=== PATIENT | female | born 1935 | race Caucasian/White ===

== ENCOUNTER → 2017-12-09 08:57 | Outpatient (CLI) | payer MEDICARE ==
[2015-07-15 09:28] VITALS: BMI 28.0
[~2017-12-09 08:57] MED LIST: ARTHROTEC EC 71 EACH PO; PRILOSEC20 MG PO; SYNTHROID75 MCG PO; TOVIAZ8 MG PO
[2017-12-09 10:06] LABS: CREATININE - SERUM 1.1 mg/dL (0.6-1.3)
== END | disposition home or self-care (01) ==
LOC: D.RT 08:57
PROVIDERS: Internal Medicine Pulmonary Disease
DX: J45.909 Unspecified asthma, uncomplicated (principal)

== ENCOUNTER → 2018-12-15 10:17 | Outpatient (CLI) | payer MEDICARE ==
[2015-07-15 09:28] VITALS: BMI 28.0
== END | disposition home or self-care (01) ==
LOC: D.RAD 10:00
PROVIDERS: ATTEND Internal Medicine Pulmonary Disease
DX: R93.89 Abnormal findings on diagnostic imaging of other specified body structures (principal)

== ENCOUNTER → 2019-08-22 08:40 | Outpatient (CLI) | payer MEDICARE ==
[2015-07-15 09:28] VITALS: BMI 28.0
== END ==
LOC: D.RT 08:40
PROVIDERS: ATTEND Internal Medicine Pulmonary Disease
DX: J45.909 Unspecified asthma, uncomplicated (principal)

== ENCOUNTER 2020-04-08 16:13 | Inpatient (IN) | payer MEDICARE ==
[~2020-04-08] VITALS: Ht 157.5 cm; Wt 53.1 kg
[2020-04-08] MEDS ORDERED: VESICARE10 MG PO (16:21)
[2020-04-08] MEDS ORDERED: SYMBICORT 80-10.2 GM INH (16:21)
[2020-04-08] MEDS ORDERED: VITAMIN B-1250 MCG PO (16:22)
[2020-04-08] MEDS ORDERED: THERMOTABS 1 GM1 GM PO (16:22)
[2020-04-08] MEDS ORDERED: OS-CAL500 MG PO (16:23)
[2020-04-08] MEDS ORDERED: MERIBIN5 MG PO (16:23)
[2020-04-08] MEDS ORDERED: VITAMIN PO (16:23)
[2020-04-08] MEDS ORDERED: FLUTICASONE PRO16 GM NASAL (16:23)
[2020-04-08 17:09] LABS: BASOPHILS 0.4 % (0-2); HEMATOCRIT 33.8 % (36.0-48.0); HEMOGLOBIN 10.8 g/dL (12-16); IMMATURE GRANULOCYTES 0.6 % (0-5); LYMPHOCYTES 6.6 % (15-50); MCH 26.3 pg (26.0-34.0); MCV 82.4 fL (80.0-100.0); MONOCYTES 10.7 % (2-11); NEUTROPHILS 80.7 % (40-80); PLATELET COUNT 259 10x3/uL (130-400); RDW 16.2 % (11.5-14.5); WBC 12.8 10x3/uL (4.8-10.8)
[2020-04-08 17:16] LABS: APTT 30.7 SECONDS (22.8-39.4); INR 1.07 (0.85-1.17); PROTIME 13.9 SECONDS (11.6-15.0)
[2020-04-08 17:17] LABS: CALC OSMOLALITY 274 mosm/kg (275-300); CALCIUM 9.4 mg/dL (8.5-10.1); CARBON DIOXIDE 27.4 mmol/L (21.0-32.0); CHLORIDE - SERUM 99 mmol/L (98-107); CREATININE - SERUM 1.3 mg/dL (0.6-1.3); GLUCOSE 107 mg/dL (74-106); POTASSIUM - SERUM 4.5 mmol/L (3.5-5.1); SODIUM 134 mmol/L (136-145); UREA NITROGEN 33 mg/dL (7-18); eGFR NON AFRICAN AMERICAN 41 mL/min (90-120)
[2020-04-08 17:34] LABS: ALBUMIN 3.3 g/dL (3.4-5.0); ALKALINE PHOSPHATASE 98 U/L (30-120); ALT (SGPT) 35 U/L (10-68); BILIRUBIN - TOTAL 0.47 mg/dL (0.2-1.3); CREATINE KINASE 913 UL (21-215); MAGNESIUM - SERUM 2.1 mg/dL (1.8-2.4); PROTEIN - SERUM 7.2 g/dL (6.4-8.2); TROPONIN-I < 0.017 ng/mL (0.000-0.060)
[2020-04-08 18:16] VITALS: BP 166/87
[2020-04-08 18:23] LABS: BACTERIA FEW /hpf (NEGATIVE); BILIRUBIN NEGATIVE (NEGATIVE); EPITHELIAL CELLS OCC /hpf (0-5); GLUCOSE NEGATIVE (NEGATIVE); KETONE NEGATIVE (NEGATIVE); NITRITE NEGATIVE (NEGATIVE); SPECIFIC GRAVITY 1.015 (1.005-1.020); UROBILINOGEN NORMAL (NORMAL); WHITE CELLS - URINE 0-5 /hpf (NEGATIVE)
[2020-04-08 20:00] VITALS: BP 162/104
--- NOTE | 2020-04-08 20:00 | NUR ---
PT ARRIVED TO THE FLOOR. ALERT AND ORIENTED. NO SIGNS OF DISTRESS. BREATHING EVEN AND UNLABORED. IV SITE LT FA DRESSING CLEAN DRY AND INTACT. NO SIGNS OF INFECTION OR INUFLTRATION. LUNG SOUNDS CLEAR. BOWEL SOUNDS ACTIVE. SKIN CLEAN DRY AND INTACT. LEG EMOBILIZER ON. AVELAR IN PLACE AND DRAINING. WILL CONTINUE PLAN OF CARE. CALL LIGHT IN REACH. BED LOWERED AND LOCKED. BED RAILS UPX2. TAMIE ALARM ON. FALL PRECAUTIONS IN PLACE. FAMILY AT BED SIDE.
[2020-04-09] VITALS: BP 169/96
[2020-04-09 00:04] VITALS: BMI 21.4
--- NOTE | 2020-04-09 02:40 | NUR ---
PT RESTING IN BED. EYES CLOSED. NO SIGNS OF DISTRESS. BREATHING EVEN AND UNLABORED. IV SITE LT FA DRESSING CLEAN DRY AND INTACT. NO SIGNS OF INFECTION OR INFULTRATION. SKIN CLEAN DRY AND INTACT. AVELAR IN PLACE. WILL CONTINUE PLAN OF CARE. CALL LIGHT IN REACH. BED LOWERED AND LOCKED. BED RAILS UPX2. TAMIE ALARM ON.
[2020-04-09 04:00] VITALS: BP 141/75
[2020-04-09 04:28] LABS: BASOPHILS 0.4 % (0-2); EOSINOPHILS 2.4 % (0-7); HEMATOCRIT 33.7 % (36.0-48.0); HEMOGLOBIN 10.4 g/dL (12-16); IMMATURE GRANULOCYTES 0.8 % (0-5); LYMPHOCYTES 9.2 % (15-50); MCH 25.6 pg (26.0-34.0); MCHC 30.9 g/dL (31.0-37.0); MEAN PLATELET VOLUME 9.1 fL (7.4-10.4); MONOCYTES 10.8 % (2-11); NEUTROPHILS 76.4 % (40-80); PLATELET COUNT 274 10x3/uL (130-400); RBC 4.06 10x6/uL (4.00-5.40); RDW 16.2 % (11.5-14.5)
[2020-04-09 05:04] LABS: ALBUMIN 2.9 g/dL (3.4-5.0); ALKALINE PHOSPHATASE 88 U/L (30-120); ALT (SGPT) 29 U/L (10-68); BILIRUBIN - TOTAL 0.54 mg/dL (0.2-1.3); CALC OSMOLALITY 276 mosm/kg (275-300); CARBON DIOXIDE 29.1 mmol/L (21.0-32.0); CHLORIDE - SERUM 102 mmol/L (98-107); CKMB 1.5 U/L (0.0-3.6); CREATININE - SERUM 1.1 mg/dL (0.6-1.3); GLUCOSE 102 mg/dL (74-106); POTASSIUM - SERUM 4.3 mmol/L (3.5-5.1); PROTEIN - SERUM 6.6 g/dL (6.4-8.2); SODIUM 136 mmol/L (136-145); TROPONIN-I < 0.017 ng/mL (0.000-0.060); UREA NITROGEN 26 mg/dL (7-18); eGFR NON AFRICAN AMERICAN 50 mL/min (90-120)
[2020-04-09 05:14] LABS: CREATINE KINASE 821 UL (21-215)
--- NOTE | 2020-04-09 08:04 | NUR ---
PT SITTING UP IN BED, DRINKING WATER, NO S/SX OF DISTRESS, IV IN LT FA CDI, PATENT, LUNGS CTA, PT IS ON RA. CL IN REACH, NO NEEDS VOICED, ASSUME PT CARE
[2020-04-09 09:10] VITALS: BP 146/81
--- NOTE | 2020-04-09 12:07 | NUR ---
PT FAMILY CAME TO DESK CONCERNED WITH PT DECLINING WEIGHT. STATED PT HAS LOST 4LBS IN LAST MONTH AND SEEMS TO FORGET TO EAT. PT IS LACTOSE INTOLERANT WILL SPEAK TO AIDAN WITH DIETARY TO SEE WHAT SUPPLEMENTS PT MAY HAVE. PT STATES PAIN IS TOLERABLE UNTIL MOVED. WILL CONTINUE WITH PLAN OF CARE
[2020-04-09 12:40] VITALS: BP 140/81
[2020-04-09 13:53] VITALS: Ht 157.5 cm; Wt 53.1 kg
--- NOTE | 2020-04-09 14:04 | NUR ---
PT SON CAME TO DESK AND STATED PT S IN PAIN, WENT AND ASKED PT AND SHE STATED HER PAIN IS AT AN 8, ADMINISTERED PRN PAIN MEDICATION. APPLIED OINTMENT TO PT LEFT ANKLE PT MISSING MIDDLE TOE ON RT FOOT. CONTINUE WITH PLAN OF CARE
--- NOTE | 2020-04-09 17:03 | NUR ---
I have reviewed this patient and I concur with the Shift Assessment completed by the Licensed Practical Nurse today this shift.
[2020-04-09 17:15] VITALS: BP 112/54
--- NOTE | 2020-04-09 18:15 | NUR ---
PATIENT SON REQUESTED THAT DR TONEY CALL HIM WITH PLAN OF CARE FOR PT. PT SON NAME IS URBAN AND NUMBER IS [phone]. WENT OVER PLAN OF CARE FROM TODAY AND SON STILL WANTS TO TALK TO IN REGARDS TO PT CARE PLAN
[2020-04-09 20:00] VITALS: BP 92/50
--- NOTE | 2020-04-09 20:00 | NUR ---
PT LYING IN BED RESTING WITHOUT DISTRESS, DENIES PAIN AT THIS TIME. IV LEFT FA INFUSING NS @ 75. LEFT LOWER LEG WITH DISCOLORATION, PUT OINTMENT ON LEG. DENIES NEEDS AT THIS TIME. CL IN REACH, WILL CTM
[2020-04-10] VITALS: BP 172/87
[2020-04-10 04:00] VITALS: BP 158/74
--- NOTE | 2020-04-10 04:05 | NUR ---
PT LYING IN BED RESTING WITHOUT DISTRESS, DENIES PAIN, STATES SHE HURTS ONLY WHEN MOVING AROUND. DOES NOT WANT ANY MEDICATION AT THIS TIME, STATES SHE WILL TAKE SOME LATER BEFORE PT COMES.
[2020-04-10 07:02] LABS: BASOPHILS 0.2 % (0-2); EOSINOPHILS 1.3 % (0-7); HEMATOCRIT 34.4 % (36.0-48.0); HEMOGLOBIN 10.7 g/dL (12-16); IMMATURE GRANULOCYTES 0.5 % (0-5); LYMPHOCYTES 5.3 % (15-50); MCHC 31.1 g/dL (31.0-37.0); MCV 83.5 fL (80.0-100.0); MEAN PLATELET VOLUME 9.3 fL (7.4-10.4); MONOCYTES 12.1 % (2-11); NEUTROPHILS 80.6 % (40-80); PLATELET COUNT 250 10x3/uL (130-400); RBC 4.12 10x6/uL (4.00-5.40); RDW 16.5 % (11.5-14.5)
[2020-04-10 07:04] LABS: WBC 12.9 10x3/uL (4.8-10.8)
--- NOTE | 2020-04-10 07:33 | NUR ---
PATIENT ALERT AND ORIENTED. RESTING QUIETLY IN BED. RESPIRATIONS EVEN NON LABORED. NO SIGNS OF DISTRESS NOTED. LEFT FOREARM IV NS INFUSING 75ML/HR. STAITS ULCER ON LEFT ANKLE, PURPLE CLEAN, DRY INTACT. HAS A RIGHT MIDDLE TOE AMPUTATION. AVELAR CATHETER IN PLACE. HAS HEARING AIDS GLASSES. DENIES FUTHER NEEDS. SIDE RAILS UP. CALL LIGHT IN REACH. WILL CONTINUE TO MONITOR FOR SAFETY.
[2020-04-10 07:37] LABS: ANION GAP 10.1 mmol/L (8-16); CALCIUM 9.5 mg/dL (8.5-10.1); CARBON DIOXIDE 25.2 mmol/L (21.0-32.0); CREATININE - SERUM 0.9 mg/dL (0.6-1.3); POTASSIUM - SERUM 4.3 mmol/L (3.5-5.1)
[2020-04-10 07:41] LABS: CKMB 1.1 U/L (0.0-3.6); CREATINE KINASE 815 UL (21-215)
--- NOTE | 2020-04-10 09:30 | NUR ---
REHAB PRESCREENING Rehab referral received and chart reviewed. This patient is a good candidate for acute inpatient rehab. I will begin her paper screen and notify case management when approvals are in place. She will then be ready for admission to rehab when her physicians feel she is appropriate for discharge. Thank you for this referral! Dana Hayes, HERIBERTO AWNG
[2020-04-10 11:05] VITALS: BP 95/62
--- NOTE | 2020-04-10 14:34 | NUR ---
REHAB SCREEN COMPLETED This patient has been accepted to Rehab. senior engineering manager contacted that screen is approved. This patient can be admitted when her physicians feel she is appropriate for discharge. Thank you! Dana Hayes, AUTO GARAGE MECHANIC Rehab PD
[2020-04-10 15:07] VITALS: BP 111/84
--- NOTE | 2020-04-10 15:49 | NUR ---
I have reviewed this patient and I concur with the Shift Assessment completed by the Licensed Practical Nurse today this shift.
--- NOTE | 2020-04-10 18:46 | NUR ---
PATIENT ALERT AND ORIENTED. RESTING WITH EYES CLOSED. RESPIRATIONS EVEN NONLABORED. NO DISTRESS NOTED. DENIES FURTHER NEEDS. SIDES RAILS UP. CALL LIGHT IN REACH. WILL CONTINUE TO MONITOR FOR SAFETY.
[2020-04-10 18:58] VITALS: BP 147/81
[2020-04-10 20:00] VITALS: BP 150/76
--- NOTE | 2020-04-10 20:00 | NUR ---
PT SITTING UP IN BED DRINKING ENSURE, GRAND DAUGHTER AT BEDSIDE. IV LEFT FA INFUSING NS @ 75. BOTH DENY NEEDS AT THIS TIME. CL IN REACH, WILL CTM
[2020-04-11] VITALS: BP 104/58
[2020-04-11 04:00] VITALS: BP 130/76
[2020-04-11 06:12] LABS: BASOPHILS 0.4 % (0-2); EOSINOPHILS 3.8 % (0-7); HEMOGLOBIN 9.3 g/dL (12-16); IMMATURE GRANULOCYTES 1.3 % (0-5); LYMPHOCYTES 11.3 % (15-50); MCH 25.7 pg (26.0-34.0); MCV 82.9 fL (80.0-100.0); MEAN PLATELET VOLUME 9.2 fL (7.4-10.4); NEUTROPHILS 68.2 % (40-80); PLATELET COUNT 246 10x3/uL (130-400); RBC 3.62 10x6/uL (4.00-5.40); RDW 16.6 % (11.5-14.5); WBC 11.2 10x3/uL (4.8-10.8)
[2020-04-11 06:58] LABS: CALC OSMOLALITY 263 mosm/kg (275-300); CALCIUM 8.6 mg/dL (8.5-10.1); CARBON DIOXIDE 23.8 mmol/L (21.0-32.0); CHLORIDE - SERUM 101 mmol/L (98-107); CREATINE KINASE 654 UL (21-215); CREATININE - SERUM 0.9 mg/dL (0.6-1.3); GLUCOSE 87 mg/dL (74-106); POTASSIUM - SERUM 3.9 mmol/L (3.5-5.1); SODIUM 131 mmol/L (136-145); UREA NITROGEN 17 mg/dL (7-18); eGFR NON AFRICAN AMERICAN 63 mL/min (90-120)
--- NOTE | 2020-04-11 07:00 | NUR ---
PT IS RESTING IN BED WITH EYES CLOSED. RESPIRATIONS ARE EVEN AND UNLABORED. PT IS EASILY AROUSED WITH VERBAL STIMULATION. UPON AROUSAL PT IS ORIENTED TO SELF/PLACE AND TIME. PT REORIENTED TO SITUATION. FALL PRECAUTIONS ARE IN PLACE. PT DENIES PRESENCE OF PAIN/N/V. BS ARE HYPOACTIVE X 4. AVELAR CATHETER IS NOTED AND DRAINING WITHOUT DIFFICULTY. CLEAR YELLOW URINE IS NOTED TO COLLECTION BAG. STAT LOCK IN PLACE TO LEFT UPPER THIGH. PT ENCOURAGED TO TCDB. PT ENCOURAGED TO REPOSITION. BED IS IN THE LOWEST POSITION. CALL LIGHT AND BEDSIDE TABLE ARE WITHIN REACH. SIDE RAILS X 2. PT DENIES FURTHER NEEDS. WILL CONT TO MONITOR.
[2020-04-11 07:01] LABS: CKMB 0.9 U/L (0.0-3.6)
--- NOTE | 2020-04-11 09:00 | NUR ---
PT ENCOURAGED TO REPOSITION. PT ENCOURAGED TO TCDB. PT VERBALIZES UNDERSTANDING AND REFUSES ASSISTANCE WITHOU REPOSITIONING AT THIS TIME. FALL PRECAUTIONS IN PLACE. BED IS IN THE LOWEST POSITION. CALL LIGHT AND BEDSIDE TABLE ARE WITHIN REACH. SIDE RAILS X 2. PT DENIES FURTHER NEEDS. WILL CONT TO MONITOR.
[2020-04-11 09:41] VITALS: BP 156/91
--- NOTE | 2020-04-11 12:30 | MORECARE ---
CASE MANAGEMENT DISCHARGE SUMMARY PATIENT: FABBY IGLESIAS UNIT: [id number] ADM DATE: 04/08/20 AGE: 84 : 36 SEX: F ROOM/BED: D.[facility]5 AUTHOR: LITADOC PHYSICIAN: REFERRING PHYSICIAN: BEA TONEY MD DATE OF SERVICE: 04/11/20 Discharge Plan Patient Name: FABBY IGLESIAS [facility] [facility] 1935 Planned Disposition: Inpatient Rehab Anticipated Discharge Date: Discharge Date: Expected LOS: Initial Reviewer: [email or web address] Initial Review Date: 04/08/2020 Generated: 04/11/20 1:29 pm DCPIA - Discharge Planning Initial Assessment Updated by [email or web address]: Lydia Bateman on 04/11/20 12:25 pm * Is the patient Alert and Oriented? Yes * How many steps to enter\exit or inside your home? * PCP MONIQUE TONEY * Pharmacy [facility] * Preadmission Environment [facility] * Other Environment [facility] * Facility Name [facility] * ADLs Independent * Equipment Elevated [place] Seat Rolling Walker Shower Chair Walker * List name and contact numbers for known caregivers / representatives who currently or will assist patient after discharge: URBAN IGLESIAS (SON) [phone] * Verbal permission to speak to the caregivers and representatives has been obtained from the patient. Yes * Community resources currently utilized None * Additional services required to return to the preadmission environment? Yes * Can the patient safely return to the preadmission environment? Yes * Has this patient been hospitalized within the prior 30 days at any hospital? No Coverage Notice Reviewer: [email or web address] Oswald Bateman Notice Issued Date-Time: 04/11/2020 12:20 Notice Type: IM Discharge Notice Notice Delivered To: Patient Relationship to Patient: Cupola Charger Name: Delivery Method: HAND - Hand Delivered Leelee Days: Prior Verbal Notification: Recipient Understood Notice: Yes Recipient Signature: Yes Med Rec Note Co-signed by Attending: Coverage Notice Comment: imm served and explained Reviewer: [id number] Oswald Bateman Notice Issued Date-Time: 04/11/2020 12:20 Notice Type: Patient Choice Letter Notice Delivered To: Patient Relationship to Patient: Cupola Charger Name: Delivery Method: HAND - Hand Delivered Leelee Days: Prior Verbal Notification: Recipient Understood Notice: Yes Recipient Signature: Yes Med Rec Note Co-signed by Attending: Coverage Notice Comment: Patient Name: FABBY IGLESIAS Page [phone] at 1230 All edits/amendments must be made on the electronic document DICTATION DATE: 04/11/201228 RETAIL PERSONAL BANKER: HAMILTON 04/11/20 1229 RPT#: [id number] DC DATE: STATUS: ADM IN [facility] [address] [place] [address] END OF REPORT
--- NOTE | 2020-04-11 12:38 | MORECARE ---
CASE MANAGEMENT DISCHARGE SUMMARY PATIENT: FABBY IGLESIAS UNIT: [id number] ADM DATE: 04/08/20 AGE: 84 : 36 SEX: F ROOM/BED: D.2215 AUTHOR: LITA,DOC PHYSICIAN: REFERRING PHYSICIAN: BEA TONEY MD DATE OF SERVICE: 04/11/20 Discharge Plan Patient Name: FABBY IGLESIAS Facility: [facility]:[place] : 1935 Planned Disposition: Inpatient Rehab Anticipated Discharge Date: Discharge Date: Expected LOS: Initial Reviewer: [email or web address] Initial Review Date: 04/08/2020 Generated: 04/11/20 1:37 pm Comments DCP- Discharge Planning Updated by [id number]: Lydia Bateman on 04/11/20 11:[address] Patient Name: FABBY IGLESIAS Admission Status: ER Accout number: [id number] Admission Date: 04-08-2020 : 1935 Admission Diagnosis:MULTIPLE FX OF PELVIS W STABLE DISRUPT OF PELVIC RING, Attending: BEA TONEY Current LOS: 3 Anticipated DC Date: Planned Disposition: Inpatient Rehab Primary Insurance: MEDICARE A & B Discharge Planning Comments: CM met with patient to complete initial dc planning assessment. CM educated patient on the CM role and verbal consent given by patient to complete assessment. Patient lives at [facility] where she is independent with her care. At discharge patient plans to go to inpatient rehab, then return home at [facility] and feels this is a safe discharge. CM discussed availability of home health, rehab services, and medical equipment. She has been accepted to [facility] IN patient rehab. She uses a walker all the time at home. IMM served and explained. CONSTANTINO also signed. Patient denied known discharge needs at this time. CM will continue to follow and will assist as needed with dc plans/needs. C.O.D. Audit Clerk: Lydia Bateman DCPIA - Discharge Planning Initial Assessment Updated by [id number]: Lydia Bateman on 04/11/20 12:25 pm * Is the patient Alert and Oriented? Yes * How many steps to enter\exit or inside your home? * PCP MONIQUE TONEY * Pharmacy [facility] * Preadmission Environment Independent [facility] * Other Environment [facility] * Facility [facility] * ADLs Independent * Equipment Elevated [place] Seat Rolling Walker Shower Chair Walker * List name and contact numbers for known caregivers / representatives who currently or will assist patient after discharge: URBAN IGLESIAS (SON) [phone] * Verbal permission to speak to the caregivers and representatives has been obtained from the patient. Yes * Community resources currently utilized None * Additional services required to return to the preadmission environment? Yes * Can the patient safely return to the preadmission environment? Yes * Has this patient been hospitalized within the prior 30 days at any hospital? No Coverage Notice Reviewer: [id number] Oswald Bateman Notice Issued Date-Time: 04/11/2020 12:20 Notice Type: IM Discharge Notice Notice Delivered To: Patient Relationship to Patient: Heating Systems Installer Name: Delivery Method: HAND - Hand Delivered Leelee Days: Prior Verbal Notification: Recipient Understood Notice: Yes Recipient Signature: Yes Med Rec Note Co-signed by Attending: Coverage Notice Comment: imm served and explained Reviewer: [id number] Bateman Notice Issued Date-Time: 04/11/2020 12:20 Notice Type: Patient Choice Letter Notice Delivered To: Patient Relationship to Patient: Heating Systems Installer Name: Delivery Method: HAND - Hand Delivered Leelee Days: Prior Verbal Notification: Recipient Understood Notice: Yes Recipient Signature: Yes Med Rec Note Co-signed by Attending: Coverage Notice Comment: Last DP export: 04/11/20 11:30 a Patient Name: FABBY IGLESIAS Page [phone] at 1238 All edits/amendments must be made on the electronic document DICTATION DATE: 04/11/20 1237 WEIGHTER: HAMILTON 04/11/20 1237 RPT#: [id number] DC DATE: STATUS: ADM IN [facility] [address] [place] [address] END OF REPORT
--- NOTE | 2020-04-11 13:18 | NUR ---
PT ENCOURAGED TO REPOSITION. PT AGREEABLE TO ASSISTANCE WITH REPOSITIONING. PILLOW USED FOR REPOSITIONING AND PT PLACED ON RIGHT SIDE. PT ENCOURAGED TO TCDB. ALL FALL PRECAUTIONS IN PLACE. BED IS IN THE LOWEST POSITION. CALL LIGHT AND BEDSIDE TABLE ARE WITHIN REACH. SIDE RAILS X 2. PT DENIES FURTHER NEEDS. WILL CONT TO MONITOR.
--- NOTE | 2020-04-11 13:37 | NUR ---
DR TONEY AT BEDSIDE AND NOTIFIED OF PT RECENT VITALS AND TEMP. SEE FLOWSHEET.
[2020-04-11 13:45] VITALS: BP 179/72
--- NOTE | 2020-04-11 13:54 | NUR ---
Nutrition Follow-up: Diet: Regular PO intake: ~50% average x last 3 meals. Son was in room feeding patient pudding. States that patient's appetite is okay currently. States that he would like for his mom to get Ensure Clear on meal trays. Last BM: none recorded since admit. WT: 117# (04/09/20), no new wt Meds and labs reviewed. Recommend continue current diet. Will add Ensure Clear to diet order. Will continue to honor food preferences. RD following.
[2020-04-11 16:00] VITALS: BP 99/61
[2020-04-11 20:00] VITALS: BP 148/78
[2020-04-12] VITALS: BP 153/81
[2020-04-12 04:00] VITALS: BP 119/63
[2020-04-12 04:48] LABS: BASOPHILS 0.3 % (0-2); EOSINOPHILS 3.6 % (0-7); HEMATOCRIT 29.2 % (36.0-48.0); HEMOGLOBIN 9.2 g/dL (12-16); IMMATURE GRANULOCYTES 0.7 % (0-5); LYMPHOCYTES 11.3 % (15-50); MCH 26.1 pg (26.0-34.0); MCHC 31.5 g/dL (31.0-37.0); MCV 82.7 fL (80.0-100.0); MEAN PLATELET VOLUME 9.2 fL (7.4-10.4); MONOCYTES 11.5 % (2-11); NEUTROPHILS 72.6 % (40-80); PLATELET COUNT 243 10x3/uL (130-400); RBC 3.53 10x6/uL (4.00-5.40); RDW 16.6 % (11.5-14.5); WBC 11.6 10x3/uL (4.8-10.8)
[2020-04-12 05:46] LABS: CALC OSMOLALITY 264 mosm/kg (275-300); CALCIUM 8.3 mg/dL (8.5-10.1); CARBON DIOXIDE 23.6 mmol/L (21.0-32.0); CHLORIDE - SERUM 101 mmol/L (98-107); CREATINE KINASE 583 UL (21-215); GLUCOSE 98 mg/dL (74-106); POTASSIUM - SERUM 3.6 mmol/L (3.5-5.1); SODIUM 131 mmol/L (136-145); UREA NITROGEN 19 mg/dL (7-18); eGFR NON AFRICAN AMERICAN 56 mL/min (90-120)
[2020-04-12 05:48] LABS: CKMB 0.7 U/L (0.0-3.6)
[2020-04-12 08:45] VITALS: BP 117/72
--- NOTE | 2020-04-12 10:00 | NUR ---
PT RESTING IN BED, EYES CLOSED, WOKE TO VOICE. PIV IN LEFT FOREARM, PATENT, INFUSING NS AT 75ML/HR. PT HAS STASIS ULCER ON LEFT ANKLE, APPLIED TATYANA CREAM PER ORDER. PT HAS CAROL AVELAR IN PLACE. URINE CLEAR DAGO COLOR. PT HAS ISP IN ROOM AND VERBALIZED UNDERSTANDING OF USE. BED TAMIE ON, FALL RISK PRECAUTIONS IN PLACE. PT RAMONA AND DISORIENTATED TO SITUATION. BED LOW, RAILS X2. CL IN REACH. WILL CONTINUE TO MONITOR.
--- NOTE | 2020-04-12 11:30 | NUR ---
PT LAYING DOWN IN BED, RESTING. PT DROWSY, BUT ABLE TO ANSWER QUESTIONS. EDUCATED ON MEDS AND PT VERBALIZED UNDERSTANDING. PT UNABLE TO SWALLOW PILL, CRUSHED MEDS AND PT TOLERATED BETTER. GRAND-DAUGHTER STATED THAT THE FAMILY HAS HAD TO GIVE HER THICKENED FLUIDS BEFORE. BED LOW, RAILS X2. WILL CONTINUE TO MONITOR.
[2020-04-12 13:15] VITALS: BP 119/62
[2020-04-12 16:40] LABS: BILIRUBIN NEGATIVE (NEGATIVE); GLUCOSE NEGATIVE (NEGATIVE); KETONE NEGATIVE (NEGATIVE); NITRITE NEGATIVE (NEGATIVE); SPECIFIC GRAVITY 1.015 (1.005-1.020); UROBILINOGEN NORMAL (NORMAL)
[2020-04-12 16:41] LABS: BACTERIA FEW /hpf (NEGATIVE); EPITHELIAL CELLS 0-5 /hpf (0-5); RED CELLS - URINE >50 /hpf (0-5); WHITE CELLS - URINE 0-5 /hpf (NEGATIVE)
[2020-04-12 17:46] VITALS: BP 188/77
[2020-04-12 20:00] VITALS: BP 100/55
--- NOTE | 2020-04-12 21:30 | NUR ---
WOKE PT UP TO TAKE MEDS. GAVE PT MEDS CRUSHED IN APPLE SAUCE AND THICKENED TEA. PT TOLERATED WELL. ASSESSMENT COMPLETE PER FLOW-SHEET. NO OTHER NEEDS. WILL REASSESS AND CONTINUE TO MONITOR.
[2020-04-13] VITALS: BP 150/81
[2020-04-13 04:00] VITALS: BP 113/58
[2020-04-13 07:01] LABS: CALC OSMOLALITY 263 mosm/kg (275-300); CALCIUM 8.9 mg/dL (8.5-10.1); CARBON DIOXIDE 23.3 mmol/L (21.0-32.0); CHLORIDE - SERUM 101 mmol/L (98-107); CREATINE KINASE 582 UL (21-215); CREATININE - SERUM 0.8 mg/dL (0.6-1.3); GLUCOSE 90 mg/dL (74-106); POTASSIUM - SERUM 3.9 mmol/L (3.5-5.1); SODIUM 130 mmol/L (136-145); UREA NITROGEN 22 mg/dL (7-18); eGFR NON AFRICAN AMERICAN 72 mL/min (90-120)
[2020-04-13 07:10] LABS: CKMB 0.7 U/L (0.0-3.6)
[2020-04-13 07:49] LABS: BASOPHILS 0.3 % (0-2); EOSINOPHILS 3.4 % (0-7); HEMATOCRIT 28.6 % (36.0-48.0); HEMOGLOBIN 9.1 g/dL (12-16); IMMATURE GRANULOCYTES 0.7 % (0-5); LYMPHOCYTES 8.5 % (15-50); MCH 26.1 pg (26.0-34.0); MCHC 31.8 g/dL (31.0-37.0); MCV 81.9 fL (80.0-100.0); MEAN PLATELET VOLUME 9.5 fL (7.4-10.4); MONOCYTES 14.3 % (2-11); NEUTROPHILS 72.8 % (40-80); PLATELET COUNT 290 10x3/uL (130-400); RBC 3.49 10x6/uL (4.00-5.40); RDW 16.7 % (11.5-14.5); WBC 11.9 10x3/uL (4.8-10.8)
[2020-04-13 08:59] VITALS: BP 116/64
--- NOTE | 2020-04-13 10:30 | NUR ---
PT RESTING QUIETLY IN BED. RESP EVEN AND UNLABORED. O2 @ 3L NC IN PLACE. DENIES PAIN AT THIS TIME. IV TO LEFT FOREARM WITH NS @ 125ML/HR INFUSING VIA PUMP. SITE WITHOUT REDNESS OR EDEMA. DENIES FURTHER NEEDS AT THIS TIME. CL WITHIN REACH. ENCOURAGED TO CALL WITH NEEDS. CONTINUE POC
[2020-04-13 12:10] VITALS: BP 124/66
[2020-04-13 16:50] VITALS: BP 96/51
[2020-04-13 20:00] VITALS: BP 140/68
[2020-04-14] VITALS: BP 122/61
[2020-04-14 04:00] VITALS: BP 136/59
[2020-04-14 05:01] LABS: BASOPHILS 0.4 % (0-2); EOSINOPHILS 6.3 % (0-7); HEMATOCRIT 29.2 % (36.0-48.0); HEMOGLOBIN 9.1 g/dL (12-16); IMMATURE GRANULOCYTES 1.2 % (0-5); MCH 25.5 pg (26.0-34.0); MCHC 31.2 g/dL (31.0-37.0); MCV 81.8 fL (80.0-100.0); MONOCYTES 15.8 % (2-11); NEUTROPHILS 66.3 % (40-80); PLATELET COUNT 321 10x3/uL (130-400); RBC 3.57 10x6/uL (4.00-5.40); RDW 16.5 % (11.5-14.5); WBC 9.3 10x3/uL (4.8-10.8)
[2020-04-14 05:54] LABS: CALC OSMOLALITY 262 mosm/kg (275-300); CALCIUM 8.9 mg/dL (8.5-10.1); CARBON DIOXIDE 24.9 mmol/L (21.0-32.0); CHLORIDE - SERUM 99 mmol/L (98-107); CREATINE KINASE 582 UL (21-215); CREATININE - SERUM 0.9 mg/dL (0.6-1.3); GLUCOSE 90 mg/dL (74-106); POTASSIUM - SERUM 4.1 mmol/L (3.5-5.1); SODIUM 129 mmol/L (136-145); UREA NITROGEN 24 mg/dL (7-18); eGFR NON AFRICAN AMERICAN 63 mL/min (90-120)
[2020-04-14 05:57] LABS: CKMB 0.7 U/L (0.0-3.6)
[2020-04-14 08:27] VITALS: BP 117/63
--- NOTE | 2020-04-14 10:57 | NUR ---
ASSESSMENT PER FLOW SHEET. PATIENT IS WITHOUT DISTRESS. AM MEDS ORDERED.CALL LIGHT IN REACH.TAMIE MAT
[2020-04-14 12:41] VITALS: BP 129/54
--- NOTE | 2020-04-14 14:29 | NUR ---
Left lower leg at outer ankle is discolored, scaly and edematous. There are no open areas noted. Bactroban ointment is being applied as ordered.
[2020-04-14 16:46] VITALS: BP 123/84
--- NOTE | 2020-04-14 18:30 | NUR ---
CALL FROM DR BETHEA FAMILY IS CONCERNED PATIENT IS NOT ALERT SHE NORMALY IS. PATIENT IS AWAKE AND GRAND DAUGHTER AT BEDSIDE.ORDERS RECIEVED PER DR BETHEA AND INITITED.
[2020-04-14 20:00] VITALS: BP 139/78
[2020-04-15] VITALS: BP 149/85
[2020-04-15 04:00] VITALS: BP 161/74
[2020-04-15 08:41] VITALS: BP 148/67
[2020-04-15 09:38] LABS: CREATINE KINASE 573 UL (21-215)
[2020-04-15 09:40] LABS: CKMB 0.4 U/L (0.0-3.6)
--- NOTE | 2020-04-15 10:32 | NUR ---
PATIENT IN BED. SHIFT ASSESSMENT COMPLETED. DENIES PAIN. FALL PRECAUTIONS IN PLACE. INDWELLING AVELAR IN PLACE. TOOK AM MEDS CRUSHED IN PUDDING, COUGHED A FEW TIMES. WILL ASSESS SWALLOWING AGAIN. CALL LIGHT WITHIN REACH. BED IN LOW POSITION. DENIES ANY NEEDS AT THIS TIME.
[2020-04-15 12:07] VITALS: BP 161/83
[2020-04-15 12:52] LABS: BILIRUBIN NEGATIVE (NEGATIVE); GLUCOSE NEGATIVE (NEGATIVE); KETONE NEGATIVE (NEGATIVE); NITRITE NEGATIVE (NEGATIVE); SPECIFIC GRAVITY 1.015 (1.005-1.020); UROBILINOGEN NORMAL (NORMAL)
--- NOTE | 2020-04-15 15:02 | NUR ---
Nutrition Follow-up: Diet: Regular (Food allergies: eggs, tomato, potato, lactose) + Ensure Clear on trays PO intake: ~23% average x last 6 meals. Spoke with patient's son at bedside who states that "the dry ice machine operator" recommened the patient to be on a "coma diet." I explained that I was not familiar with that diet. He states that he would like his mothers foods pureed and mixed in soups. He states that she does well with beans but tends to "cough up" more solid "chunks of food." He also states that patient is on honey thickened liquids although patient has not been seen by ST and I do not note any mention of needing thickened liquids in the chart. Son is agreeable to change Ensure Clear to Ensure Enlive to hopefully help increase calorie and protein intake. Recommend bedside swallow eval for safe PO intake. Will change Ensure to Ensure Enlive. Will change diet to puree and add soup to every meal tray. If patient's family wants to mix purees with soup they may. I have witnessed patient's family feeding patient at meal times, I am unsure if they do this every meal or not. RD following.
[2020-04-15 16:42] VITALS: BP 121/66
[2020-04-15 20:00] VITALS: BP 145/58
[2020-04-16] VITALS: BP 150/71; BP 168/72
[2020-04-16 04:00] VITALS: BP 170/91
--- NOTE | 2020-04-16 04:24 | NUR ---
ALERT AND CONFUSED. ON ROOM AIR IV TO LEFT FOREARM WITH NS AT 5ML/HR. LEFT RIST RED AND SWOLLEN NOT RED THIS SHIFT . FOLLY CATH IN PLACE AND PATEN WITH URINE TO BAG. NORCO FOR PAIN CONTROL. CRUSHES MEDS. RESTING WITH NO S/S OF DISTRESS RADIO IN AT BEDSIDE REORENTED HER THAT IT WAS RADIO WAS NOT A PERSON IN THE NEXET ROOM BUT HER RADIO THAT HER FAMILY LEFT FOR HER. SHE STATED THAT WAS NICE. AGREADED WITH HER CALL LIGHT AND WATER IN REACH.
[2020-04-16 05:31] LABS: BASOPHILS 0.4 % (0-2); EOSINOPHILS 3.8 % (0-7); HEMATOCRIT 30.2 % (36.0-48.0); HEMOGLOBIN 9.7 g/dL (12-16); IMMATURE GRANULOCYTES 4.9 % (0-5); LYMPHOCYTES 11.3 % (15-50); MCH 26.3 pg (26.0-34.0); MCHC 32.1 g/dL (31.0-37.0); MCV 81.8 fL (80.0-100.0); MEAN PLATELET VOLUME 8.8 fL (7.4-10.4); MONOCYTES 19.2 % (2-11); NEUTROPHILS 60.4 % (40-80); RBC 3.69 10x6/uL (4.00-5.40); RDW 16.1 % (11.5-14.5); WBC 9.5 10x3/uL (4.8-10.8)
[2020-04-16 05:36] LABS: PLATELET COUNT 402 10x3/uL (130-400)
[2020-04-16 06:00] LABS: CALC OSMOLALITY 265 mosm/kg (275-300); CALCIUM 9.7 mg/dL (8.5-10.1); CARBON DIOXIDE 27.9 mmol/L (21.0-32.0); CHLORIDE - SERUM 97 mmol/L (98-107); CREATINE KINASE 536 UL (21-215); CREATININE - SERUM 0.9 mg/dL (0.6-1.3); GLUCOSE 101 mg/dL (74-106); POTASSIUM - SERUM 3.7 mmol/L (3.5-5.1); SODIUM 131 mmol/L (136-145); UREA NITROGEN 22 mg/dL (7-18); eGFR NON AFRICAN AMERICAN 63 mL/min (90-120)
[2020-04-16 06:01] LABS: CKMB 0.6 U/L (0.0-3.6)
[2020-04-16 07:40] VITALS: BP 154/86
--- NOTE | 2020-04-16 07:45 | NUR ---
SHE IS AWAKE, ALERT, SHE IS PICKING AT HER BREAKFAST. TOOK HER MEDICATIONS WITH PUDDING, SHE COUGHS A LITTLE WHEN EATING OR DRINKING, THE HOB IS STRAIGHT UP FOR SAFE SWALLOWING. THE CALL LIGHT IS WITHIN REACH. SHE DENIES ANY PAIN.
[2020-04-16 12:22] VITALS: BP 111/59
[2020-04-16] MEDS ORDERED: FLORAJEN3 CAPS460 MG PO (12:44)
--- NOTE | 2020-04-16 13:36 | MORECARE ---
CASE MANAGEMENT DISCHARGE SUMMARY PATIENT: FABBY IGLESIAS UNIT: [id number] ADM DATE: 04/08/20 AGE: 84 : 36 SEX: F ROOM/BED: D.2215 AUTHOR: LITA,DOC PHYSICIAN: REFERRING PHYSICIAN: BEA TONEY MD DATE OF SERVICE: 04/16/20 Discharge Plan Patient Name: FABBY IGLESIAS Facility: [facility]:[place] : 1935 Planned Disposition: Inpatient Rehab Anticipated Discharge Date: Discharge Date: Expected LOS: Initial Reviewer: [id number] Initial Review Date: 04/08/2020 Generated: 04/16/20 2:35 pm Comments DCP- Discharge Planning Updated by [id number]: Lydia Bateman on 04/16/20 12:[address] Patient will be discharging to inpatient rehab today at [facility] DCP- Discharge Planning Updated by [id number]: Lydia Bateman on 04/11/20 11:[address] Patient Name: FABBY IGLESIAS Admission Status: ER Accout number: [id number] Admission Date: 04-08-2020 : 1935 Admission Diagnosis:MULTIPLE FX OF PELVIS W STABLE DISRUPT OF PELVIC RING, Attending: BEA TONEY Current LOS: 3 Anticipated DC Date: Planned Disposition: Inpatient Rehab Primary Insurance: MEDICARE A & B Discharge Planning Comments: CM met with patient to complete initial dc planning assessment. CM educated patient on the CM role and verbal consent given by patient to complete assessment. Patient lives at [facility] where she is independent with her care. At discharge patient plans to go to inpatient rehab, then return home at [facility] and feels this is a safe discharge. CM discussed availability of home health, rehab services, and medical equipment. She has been accepted to [facility] IN patient rehab. She uses a walker all the time at home. [facility] served and explained. CONSTANTINO also signed. Patient denied known discharge needs at this time. CM will continue to follow and will assist as needed with dc plans/needs. Drawer In Plain Loom: Lydia Bateman DCPIA - Discharge Planning Initial Assessment Updated by [id number]: Lydia Bateman on 04/11/20 12:25 pm * Is the patient Alert and Oriented? Yes * How many steps to enter\exit or inside your home? * PCP MONIQUE TONEY * Pharmacy [facility] * Preadmission Environment [facility] * Other Environment [facility] * Facility Name [facility] * ADLs Independent * Equipment Elevated [place] Seat Rolling Walker Shower Chair Walker * List name and contact numbers for known caregivers / representatives who currently or will assist patient after discharge: URBAN IGLESIAS (SON) [phone] * Verbal permission to speak to the caregivers and representatives has been obtained from the patient. Yes * Community resources currently utilized None * Additional services required to return to the preadmission environment? Yes * Can the patient safely return to the preadmission environment? Yes * Has this patient been hospitalized within the prior 30 days at any hospital? No Coverage Notice Reviewer: [id number] Oswald Bateman Notice Issued Date-Time: 04/11/2020 12:20 Notice Type: IM Discharge Notice Notice Delivered To: Patient Relationship to Patient: Mayonnaise Mixer Name: Delivery Method: HAND - Hand Delivered Leelee Days: Prior Verbal Notification: Recipient Understood Notice: Yes Recipient Signature: Yes Med Rec Note Co-signed by Attending: Coverage Notice Comment: imm served and explained Reviewer: [id number] Bateman Notice Issued Date-Time: 04/11/2020 12:20 Notice Type: Patient Choice Letter Notice Delivered To: Patient Relationship to Patient: Mayonnaise Mixer Name: Delivery Method: HAND - Hand Delivered Leelee Days: Prior Verbal Notification: Recipient Understood Notice: Yes Recipient Signature: Yes Med Rec Note Co-signed by Attending: Coverage Notice Comment: Last DP export: 04/11/20 11:38 a Patient Name: FABBY IGLESIAS Page [phone] at 1336 All edits/amendments must be made on the electronic document DICTATION DATE: 04/16/20 1335 METAL FURNITURE GLAZIER: HAMILTON 04/16/20 1335 RPT#: [id number] DC DATE: STATUS: ADM IN [facility] [address] [place] [address] END OF REPORT
[2020-04-16 17:04] VITALS: BP 128/72
--- NOTE | 2020-04-17 17:29 | MORECARE ---
CASE MANAGEMENT DISCHARGE SUMMARY PATIENT: FABBY IGLESIAS UNIT: [id number] ADM DATE: 04/08/20 AGE: 84 : 36 SEX: F ROOM/BED: D.2455 AUTHOR: ILTA,DOC PHYSICIAN: REFERRING PHYSICIAN: BEA TONEY MD DATE OF SERVICE: 04/17/20 Discharge Plan Patient Name: FABBY IGLESIAS Facility: [facility]:[place] : 1935 Planned Disposition: Inpatient Rehab Anticipated Discharge Date: Discharge Date: 04/16/2020 Expected LOS: Initial Reviewer: [email or web address] Initial Review Date: 04/08/2020 Generated: 04/17/20 6:28 pm Comments DCP- Discharge Planning Updated by [email or web address]: Lydia Bateman on 04/16/20 12:[address] Patient will be discharging to inpatient rehab today at [facility] DCP- Discharge Planning Updated by [email or web address]: Lydia Bateman on 04/11/20 11:[address] Patient Name: FABBY IGLESIAS Admission Status: ER Accout number: [id number] Admission Date: 04-08-2020 : 1935 Admission Diagnosis:MULTIPLE FX OF PELVIS W STABLE DISRUPT OF PELVIC RING, Attending: BEA TONEY Current LOS: 3 Anticipated DC Date: Planned Disposition: Inpatient Rehab Primary Insurance: MEDICARE A & B Discharge Planning Comments: CM met with patient to complete initial dc planning assessment. CM educated patient on the CM role and verbal consent given by patient to complete assessment. Patient lives at [facility] where she is independent with her care. At discharge patient plans to go to inpatient rehab, then return home at [facility] and feels this is a safe discharge. CM discussed availability of home health, rehab services, and medical equipment. She has been accepted to [facility] IN patient rehab. She uses a walker all the time at home. [facility] served and explained. CONSTANTINO also signed. Patient denied known discharge needs at this time. CM will continue to follow and will assist as needed with dc plans/needs. Automatic Fancy Machine Operator: Lydia Bateman DCPIA - Discharge Planning Initial Assessment Updated by [id number]: Lydia Bateman on 04/11/20 12:25 pm * Is the patient Alert and Oriented? Yes * How many steps to enter\exit or inside your home? * PCP MONIQUE TONEY * Pharmacy [facility] * Preadmission Environment Independent [facility] * Other Environment [facility] * Facility Name [facility] * ADLs Independent * Equipment Elevated [place] Seat Rolling Walker Shower Chair Walker * List name and contact numbers for known caregivers / representatives who currently or will assist patient after discharge: URBAN IGLESIAS (SON) [phone] * Verbal permission to speak to the caregivers and representatives has been obtained from the patient. Yes * Community resources currently utilized None * Additional services required to return to the preadmission environment? Yes * Can the patient safely return to the preadmission environment? Yes * Has this patient been hospitalized within the prior 30 days at any hospital? No Coverage Notice Reviewer: JOHNNY Bateman Notice Issued Date-Time: 04/11/2020 12:20 Notice Type: IM Discharge Notice Notice Delivered To: Patient Relationship to Patient: Commissioning Manager Name: Delivery Method: HAND - Hand Delivered Leelee Days: Prior Verbal Notification: Recipient Understood Notice: Yes Recipient Signature: Yes Med Rec Note Co-signed by Attending: Coverage Notice Comment: imm served and explained Reviewer: JOHNNY Bateman Notice Issued Date-Time: 04/11/2020 12:20 Notice Type: Patient Choice Letter Notice Delivered To: Patient Relationship to Patient: Commissioning Manager Name: Delivery Method: HAND - Hand Delivered Leelee Days: Prior Verbal Notification: Recipient Understood Notice: Yes Recipient Signature: Yes Med Rec Note Co-signed by Attending: Coverage Notice Comment: Reviewer: [id number] Bateman Notice Issued Date-Time: 04/16/2020 13:50 Notice Type: IM Discharge Notice Notice Delivered To: Patient Relationship to Patient: Commissioning Manager Name: Delivery Method: HAND - Hand Delivered Leelee Days: Prior Verbal Notification: Recipient Understood Notice: Yes Recipient Signature: Yes Med Rec Note Co-signed by Attending: Coverage Notice Comment: Last DP export: 04/16/20 12:36 pm Patient Name: FABBY IGLESIAS Page [id number] at 1729 All edits/amendments must be made on the electronic document DICTATION DATE: 04/17/201727 CAD CAM PROGRAMMER: HAMILTON 04/17/201727 RPT#: [id number] DC DATE:04/16/20 STATUS: DIS IN [facility] [address] [place] [address] END OF REPORT
== END 2020-04-16 20:09 | DRG 536 ==
LOC: D.ER 16:13 → D.MS 19:12
PROVIDERS: Family Medicine; ADMIT Family Medicine; ATTEND Family Medicine
DX: S32.502A Unspecified fracture of left pubis, initial encounter for closed fracture (principal); M62.82 Rhabdomyolysis; L97.929 Non-pressure chronic ulcer of unspecified part of left lower leg with unspecified severity; N39.0 Urinary tract infection, site not specified; J44.9 Chronic obstructive pulmonary disease, unspecified; I10 Essential (primary) hypertension; I83.029 Varicose veins of left lower extremity with ulcer of unspecified site; W19.XXXA Unspecified fall, initial encounter; E03.9 Hypothyroidism, unspecified; R00.0 Tachycardia, unspecified

== ENCOUNTER 2020-04-16 15:13 | Inpatient (IN) | payer MEDICARE ==
[~2020-04-16] VITALS: Ht 157.5 cm; Wt 52.6 kg
[~2020-04-16 15:13] MED LIST changes: +FLORAJEN3 CAPS460 MG PO; +FLUTICASONE PRO16 GM NASAL; +MERIBIN5 MG PO; +OS-CAL500 MG PO; +SYMBICORT 80-10.2 GM INH; +THERMOTABS 1 GM1 GM PO; +VESICARE10 MG PO; +VITAMIN B-1250 MCG PO; +VITAMIN PO
--- NOTE | 2020-04-16 19:50 | NUR ---
RECEIVED PT TO FLOOR VIA BED ACCOMPANIED BY HOSPITAL STAFF. PT IS ALERT AND ORIENTED X4. NO SIGNS OF ACUTE DISTRESS NOTED. AVELAR CATH PATENT AND FREE FROM KINKS. DENIES ANY PAIN. VS STABLE. ORIENTED TO UNIT. NO CONCERNS VOICED. RIGHT FOREARM IV WTIHOUT REDNESS OR SWELLING. DRESSING INTACT. CALL LIGHT AND WATER WITHIN REACH. FALL PRECAUTIONS IN PLACE. CPOC
[2020-04-16 21:42] VITALS: BP 116/62
[2020-04-16 22:09] VITALS: BP 116/62; BMI 21.2
--- NOTE | 2020-04-17 03:49 | NUR ---
PT LYING IN BED EYES CLOSED RESTING QUIETLY. RR EVEN AND UNLABORED. CALL LIGHT AND WATER WITHIN REACH. FALL PRECAUTIONS IN PLACE. CPOC
--- NOTE | 2020-04-17 06:00 | NUR ---
PT LYING IN BED ON RIGHT SIDE EYES CLOSED RESTING. RR EVEN AND UNLABORED. CALL LIGHT WITHIN REACH. FALL PRECAUTIONS IN PLACE. CPOC
--- NOTE | 2020-04-17 06:00 | NUR ---
CLAMMPED FOR BLADDER TRAINING
[2020-04-17 07:03] LABS: BASOPHILS 0.5 % (0-2); EOSINOPHILS 3.7 % (0-7); HEMATOCRIT 30.8 % (36.0-48.0); HEMOGLOBIN 9.6 g/dL (12-16); IMMATURE GRANULOCYTES 5.4 % (0-5); LYMPHOCYTES 14.8 % (15-50); MCH 25.8 pg (26.0-34.0); MCHC 31.2 g/dL (31.0-37.0); MCV 82.8 fL (80.0-100.0); MEAN PLATELET VOLUME 8.6 fL (7.4-10.4); MONOCYTES 16.5 % (2-11); NEUTROPHILS 59.1 % (40-80); PLATELET COUNT 474 10x3/uL (130-400); RBC 3.72 10x6/uL (4.00-5.40); RDW 16.3 % (11.5-14.5); WBC 11.3 10x3/uL (4.8-10.8)
[2020-04-17 07:29] LABS: ANION GAP 10.9 mmol/L (8-16); CALCIUM 9.5 mg/dL (8.5-10.1); CARBON DIOXIDE 28.3 mmol/L (21.0-32.0); CREATININE - SERUM 0.8 mg/dL (0.6-1.3); POTASSIUM - SERUM 4.2 mmol/L (3.5-5.1)
[2020-04-17 08:00] VITALS: BP 122/62
--- NOTE | 2020-04-17 08:00 | NUR ---
SHIFT ASSMT COMPLETED.BREAKFAST GIVEN.CL IN REACH.
[2020-04-17 08:58] LABS: BILIRUBIN NEGATIVE (NEGATIVE); GLUCOSE NEGATIVE (NEGATIVE); KETONE NEGATIVE (NEGATIVE); NITRITE NEGATIVE (NEGATIVE); SPECIFIC GRAVITY 1.015 (1.005-1.020); UROBILINOGEN NORMAL (NORMAL); WHITE CELLS - URINE 0-5 /hpf (NEGATIVE)
[2020-04-17 08:59] LABS: AMORPHOUS SEDIMENT <1+ /lpf (NONE SEEN); BACTERIA FEW /hpf (NEGATIVE); EPITHELIAL CELLS 0-5 /hpf (0-5); RED CELLS - URINE OCC /hpf (0-5); YEAST >1+ /hpf (NONE SEEN)
--- NOTE | 2020-04-17 12:00 | NUR ---
EATING LUNCH.YUDELKA AT BEDSIDE.
[2020-04-17 13:22] VITALS: Ht 157.5 cm; Wt 52.6 kg
--- NOTE | 2020-04-17 15:44 | NUR ---
PATIENT ADMITTED TO REHAB FROM ACUTE FLOOR. HER PCP IS MONIQUE BERNSTEIN/ DR. TONEY OFFICE. DME AT HOME IS A WALKER AND A SHOWER CHAIR. PATIENT RESIDES AT [facility] AND WILL DISCHARGE BACK TO HER APARTMENT. WILL CONTINUE TO FOLLOW WITH PATIENT.
[2020-04-17 21:45] VITALS: BP 110/58
--- NOTE | 2020-04-18 03:40 | NUR ---
PT A&O, IN BED AROUSES EASILY TO VOICE, NO NEEDS NOTED, FALL PRECAUTIONS IN PLACE, FLUIDS/CALL LIGHT WITHIN REACH
[2020-04-18 05:29] LABS: HEMATOCRIT 28.4 % (36.0-48.0); HEMOGLOBIN 8.8 g/dL (12-16); MCH 25.6 pg (26.0-34.0); MCV 82.6 fL (80.0-100.0); MEAN PLATELET VOLUME 8.6 fL (7.4-10.4); PLATELET COUNT 487 10x3/uL (130-400); RBC 3.44 10x6/uL (4.00-5.40); RDW 16.2 % (11.5-14.5); WBC 10.4 10x3/uL (4.8-10.8)
[2020-04-18 05:43] LABS: ANION GAP 11.5 mmol/L (8-16); CALCIUM 9.1 mg/dL (8.5-10.1); CARBON DIOXIDE 25.3 mmol/L (21.0-32.0); POTASSIUM - SERUM 3.8 mmol/L (3.5-5.1)
[2020-04-18 06:45] LABS: BASOPHILS 1 % (0-2); EOSINOPHILS 6 % (0-7); LYMPHOCYTES 37 % (15-50); MONOCYTES 6 % (2-11); NEUTROPHILS 46 % (40-80); PLATELET ESTIMATE INCREASED
[2020-04-18 06:48] LABS: TARGET CELLS OCC
[2020-04-18 08:00] VITALS: BP 122/66
--- NOTE | 2020-04-18 08:00 | NUR ---
SITTING UP IN BED EATING BREAKFAST, DENIES ANY NEEDS AT THIS TIME, C/L AND FLUIDS IN REACH.
--- NOTE | 2020-04-18 13:58 | NUR ---
UP IN W/C EATING LUNCH, DENIES ANY NEEDS AT THIS TIME, C/L AND FLUIDS IN REACH.
--- NOTE | 2020-04-18 16:11 | NUR ---
UP IN W/C VISITING WITH FAMILY, DENIES ANY NEEDS AT THIS TIME, C/L AND FLUIDS IN REACH.
--- NOTE | 2020-04-18 20:40 | NUR ---
PT UP IN CHAIR, STILL PICKING AT DINNER TRAY, NO NEEDS NOTED, FLUIDS/CALL LIGHT WITHIN REACH
--- NOTE | 2020-04-19 07:30 | NUR ---
AWAKE AND ALERT RESTING IN BED, DENIES ANY NEEDS AT THIS TIME, ASSESSMENT COMPLETE, C/L AND FLUIDS IN REACH.
[2020-04-19 11:41] LABS: CREATINE KINASE 641 UL (21-215)
[2020-04-19 11:42] LABS: CKMB 1.6 U/L (0.0-3.6)
--- NOTE | 2020-04-19 12:00 | NUR ---
UP IN W/C EATING LUNCH, DENIES ANY NEEDS AT THIS TIME, C/L AND FLUIDS IN REACH.
[2020-04-19 13:27] VITALS: BP 119/61
--- NOTE | 2020-04-19 16:02 | NUR ---
UP IN W/C VISITING WITH FAMILY, DENIES ANY NEEDS AT THIS TIME, C/L AND FLUIDS IN REACH.
--- NOTE | 2020-04-19 19:00 | NUR ---
RECEIVED PT SITTING UP IN W/C. ASSISTED PT WITH TRANSFER FROM W/C TO BED WITH MIN ASSIST. ALERT AND ORIENTED X3. REORIENTED TO TIME. NO SIGNS OF ACUTE DISTRESS NOTED. CALL LIGHT AND WATER WITHIN REACH. FALL PRECAUTIONS IN PLACE. CPOC
[2020-04-19 20:28] VITALS: BP 126/74
--- NOTE | 2020-04-20 03:01 | NUR ---
PT LYING IN BED EYES CLOSED RESTING COMFORTABLY. RR EVEN AND UNLABORED. CALL LIGHT WITHIN REACH. FALL PRECAUTIONS IN PLACE. CPOC
--- NOTE | 2020-04-20 07:31 | NUR ---
AWAKE AND ALERT RESTING IN BED, DENIES ANY NEEDS AT THIS TIME, C/L AND FLUIDS IN REACH.
[2020-04-20 11:24] VITALS: BP 138/71
--- NOTE | 2020-04-20 12:33 | NUR ---
UP IN W/C EATING LUNCH VISITING WITH SON, ASSISTED TO BATHROOM, DENIES ANY OTHER NEEDS AT THIS TIME, C/L AND FLUIDS IN REACH.
--- NOTE | 2020-04-20 16:01 | NUR ---
UP IN W/C, DENIES ANY NEEDS AT THIS TIME, C/L AND FLUIDS IN REACH.
[2020-04-20 19:10] VITALS: BP 124/62
--- NOTE | 2020-04-20 19:10 | NUR ---
RECEIVED PT SITTING UP IN W/C. ALERT AND ORIENTED X4. DENIES ANY PAIN. ASSISTED TO RESTROOM AND CHANGED INTO GOWN. PT IS NOW IN BED ON RIGHT SIDE. CALL LIGHT AND WATER WITHIN REACH. FALL PRECAUTIONS IN PLACE. CPOC
--- NOTE | 2020-04-21 00:30 | NUR ---
PT LYING IN BED ON RIGHT SIDE EYES CLOSED RESTING QUIETLY. RR EVEN AND UNLABORED. CALL LIGHT WITHIN REACH. FALL PRECAUTIONS IN PLACE. CPOC
--- NOTE | 2020-04-21 02:27 | NUR ---
PT LYING IN BED EYES CLOSED RESTING . RR EVEN AND UNLABORED. CALL LIGHT WITHIN REACH. FALL PRECAUTIONS IN PLACE. CPOC
--- NOTE | 2020-04-21 04:31 | NUR ---
PT LYING IN BED ON LEFT SIDE EYES CLOSED RESTING. RR EVEN AND UNLABORED. CALL LIGHT WITHIN REACH. FALL PRECAUTIONS IN PLACE. CPOC
[2020-04-21 07:30] LABS: BASOPHILS 0.4 % (0-2); HEMATOCRIT 28.7 % (36.0-48.0); HEMOGLOBIN 8.8 g/dL (12-16); IMMATURE GRANULOCYTES 1.8 % (0-5); LYMPHOCYTES 9.4 % (15-50); MCH 25.8 pg (26.0-34.0); MCHC 30.7 g/dL (31.0-37.0); MCV 84.2 fL (80.0-100.0); MEAN PLATELET VOLUME 8.4 fL (7.4-10.4); MONOCYTES 9.1 % (2-11); NEUTROPHILS 74.3 % (40-80); PLATELET COUNT 545 10x3/uL (130-400); RBC 3.41 10x6/uL (4.00-5.40); RDW 16.4 % (11.5-14.5)
[2020-04-21 07:47] LABS: ANION GAP 13.2 mmol/L (8-16); CREATININE - SERUM 0.8 mg/dL (0.6-1.3); POTASSIUM - SERUM 4.2 mmol/L (3.5-5.1)
--- NOTE | 2020-04-21 08:00 | NUR ---
PT RESTING IN BED WITH EYES OPEN CALL LIGHT IN REACH WILL MONITER
--- NOTE | 2020-04-21 13:10 | NUR ---
Nutrition Follow-up: Diet: Regular Puree with thin liquids + Chocolate Boost TID PO intake: ~37% average x last 6 meals; she states that she has sores in her mouth and needs all foods to be soft. She complains that often the food has too much seasoning/spices which irritates her mouth. She likes soup and states that she would eat it every meal. She is also drinking Boost TID. Last BM: 04/21/20. WT: 116# (04/17/20) Meds reviewed. Labs noted: Na 134(L), BUN 29(H) Skin: "open wound to LLE" Recommend continue Regular Puree diet. Will update diet preferences. Encouraged PO intake. RD following.
--- NOTE | 2020-04-21 18:29 | NUR ---
PT UP IN WHEELCHAIR WITH AWILDA IN ROOM NO PROBLEMS WILL MONITER
--- NOTE | 2020-04-21 20:17 | NUR ---
AWAKE AND ALERT SITTING IN WHEELCHAIR. ASSISTED TO BED. BRACE INTACT TO LEFT LEG. RESPIRATIONS UNLABORED. NO ACUTE DISTRESS NOTED. CALL LIGHT IN REACH.
[2020-04-21 21:40] VITALS: BP 159/73
--- NOTE | 2020-04-21 22:00 | NUR ---
RESTING IN BED AFTER MED PASS. NO DISTRESS NOTED.
--- NOTE | 2020-04-22 00:15 | NUR ---
ASSISTED TO BATHROOM AND VOIDED A LARGE AMOUNT OF URINE. ASSISTED BACK TO BED. RESTING NOW WITH NO DISTRESS NOTED.
--- NOTE | 2020-04-22 02:00 | NUR ---
SLEEPING WITH RESPIRAITONS UNLABORED. CALL LIGHT IN REACH.
--- NOTE | 2020-04-22 05:30 | NUR ---
QUIET HOURS. NO ACUTE CHANGES IN CONDITION THIS SHIFT. RESTING IN BED WITH NO DISTRESS NOTED.
[2020-04-22 08:00] VITALS: BP 138/75
--- NOTE | 2020-04-22 08:06 | NUR ---
SITTING UP IN BED EATING BREAKFAST, DENIES ANY NEEDS AT THIS TIME, C/L AND FLUIDS IN REACH.
--- NOTE | 2020-04-22 12:00 | NUR ---
UP IN W/C, DENIES ANY NEEDS AT THIS TIME, C/L AND FLUIDS IN REACH.
--- NOTE | 2020-04-22 12:25 | NUR ---
I have reviewed this patient and I concur with the Shift Assessment completed by the Licensed Practical Nurse today this shift.
--- NOTE | 2020-04-22 16:13 | NUR ---
UP IN CHAIR VISITING WITH FAMILY, DENIES ANY NEEDS AT THIS TIME, C/L AND FLUIDS IN REACH.
--- NOTE | 2020-04-22 20:25 | NUR ---
AWAKE AND ALERT. SITTING IN WHEELCHAIR TALKING WITH VISITOR. RESPIRATIONS UNLABORED. STATED SHE HAD A GOOD DAY. NO DISTRESS NOTED.
[2020-04-22 22:02] VITALS: BP 134/81
--- NOTE | 2020-04-23 01:15 | NUR ---
RESTING QUIETLY IN BED. RESPIRATIONS UNLABORED. NO DISTRESS NOTED.
--- NOTE | 2020-04-23 02:52 | NUR ---
CONTINUES SLEEPING WITH NO DISTRESS NOTED.
[2020-04-23 07:41] LABS: BASOPHILS 0.5 % (0-2); EOSINOPHILS 5.2 % (0-7); HEMATOCRIT 31.1 % (36.0-48.0); HEMOGLOBIN 9.5 g/dL (12-16); IMMATURE GRANULOCYTES 1.6 % (0-5); LYMPHOCYTES 14.9 % (15-50); MCH 25.7 pg (26.0-34.0); MCHC 30.5 g/dL (31.0-37.0); MCV 84.3 fL (80.0-100.0); MEAN PLATELET VOLUME 8.5 fL (7.4-10.4); NEUTROPHILS 66.8 % (40-80); PLATELET COUNT 612 10x3/uL (130-400); RBC 3.69 10x6/uL (4.00-5.40); RDW 16.5 % (11.5-14.5); WBC 7.9 10x3/uL (4.8-10.8)
[2020-04-23 07:56] LABS: CALCIUM 9.6 mg/dL (8.5-10.1); CREATININE - SERUM 0.9 mg/dL (0.6-1.3)
[2020-04-23 08:00] VITALS: BP 144/75
--- NOTE | 2020-04-23 08:00 | NUR ---
PT RESTING IN BED WITH EYES OPEN CALL LIGHT IN REACH WILL MONITER
--- NOTE | 2020-04-23 11:00 | NUR ---
I have reviewed this patient and I concur with the Shift Assessment completed by the Licensed Practical Nurse today this shift.
--- NOTE | 2020-04-23 14:49 | NUR ---
CARE TEAM MEETING: PATIENT FAMILY ATTENDED THE MEETING. PATIENT IS PROGRESSING SLOWLY IN THERAPY. FAMILY REQUEST A REFERRAL TO BE MADE AT [facility]. WILL MAKE REFERRAL PER REQUEST. TENATIVE DISCHARGE DATE IS 05/02/20. WILL CONTINUE TO FOLLOW WITH PATIENT.
--- NOTE | 2020-04-23 17:28 | NUR ---
PT RESTING IN BED WITH EYES OPEN CALL LIGHT IN REACH NO PROBLEMS WILL MONITERS
--- NOTE | 2020-04-23 19:35 | NUR ---
RECEIVED PT SITTING OUTSIDE ON PATIO WITH DAUGHTER. ALERT AND ORIENTED X3. DENIES ANY NEEDS OR PAIN. NO SIGNS OF ACUTE DISTRESS NOTED. CPOC
[2020-04-23 21:59] VITALS: BP 127/64
--- NOTE | 2020-04-24 00:51 | NUR ---
PT LYING IN BED SUPINE EYES CLOSED RESTING QUIETLY. HOB ELEVATED. RR EVEN AND UNLABORED. CALL LIGHT WITHIN REACH. FALL PRECAUTIONS IN PLACE. CPOC
--- NOTE | 2020-04-24 03:08 | NUR ---
PT LYING IN BED EYES CLOSED RESTING QUIETLY. HOB ELEVATED. RR EVEN AND UNLABORED. CALL LIGHT WITHIN REACH. FALL PRECAUTIONS IN PLACE. CPOC
--- NOTE | 2020-04-24 07:29 | NUR ---
RESTING IN BED WITH EYES CLOSED, NO S/S OF DISTRESS NOTED, RESP EVEN AND UNLABORED, C/L AND FLUIDS IN REACH.
[2020-04-24 07:38] VITALS: BP 120/54
--- NOTE | 2020-04-24 12:05 | NUR ---
UP IN W/C TALKING ON PHONE, DENIES ANY NEEDS AT THIS TIME, C/L AND FLUIDS IN REACH.
--- NOTE | 2020-04-24 15:54 | NUR ---
UP IN W/C READING, DENIES ANY NEEDS AT THIS TIME, C/L AND FLUIDS IN REACH.
--- NOTE | 2020-04-24 19:15 | NUR ---
RECEIVED PT SITTING UP IN W/C. ALERT AND ORIENTED X4. DENIES ANY NEEDS OR PAIN. NO SIGNS OF ACUTE DISTRESSS NOTED. CALL LIGHT AND WATER WITHIN REACH. FALL PRECAUTIONS IN PLACE. CPOC
[2020-04-24 21:48] VITALS: BP 122/77
--- NOTE | 2020-04-24 23:50 | NUR ---
QUIET HOURS. PT LYING IN BED SUPINE EYES CLOSED RESTING QUIETLY. HOB ELEVATED. RR EVEN AND UNLABORED. CALL LIGHT WITHIN REACH. FALL PRECAUTIONS IN PLACE. CPOC
--- NOTE | 2020-04-25 01:59 | NUR ---
PT LYING IN BED EYES CLOSED RESTING QUIETLY. RR EVEN AND UNLABORED. CALL LIGHT WITHIN REACH. FALL PRECAUTIONS IN PLACE. CPOC
--- NOTE | 2020-04-25 04:59 | NUR ---
PT LYING IN BED EYES CLOSED RESTING QUIETLY. RR EVEN AND UNLABORED. CALL LIGHT WITHIN REACH. FALL PRECAUTIONS IN PLACE. CPOC
--- NOTE | 2020-04-25 05:45 | NUR ---
INCONTINENCE CARE PROVIDED. LARGE URINE INCONTINENCE. COMPLETE LINEN CHANGE DONE. PERICARE PROVIDED. NO PAIN NOTED. NO OTHER NEEDS VOICED. CALL LIGHT AND WATER WITHIN REACH. FALL PRECAUTIONS IN PLACE. CPOC
[2020-04-25 06:31] LABS: BASOPHILS 0.8 % (0-2); EOSINOPHILS 5.8 % (0-7); HEMATOCRIT 30.5 % (36.0-48.0); HEMOGLOBIN 9.4 g/dL (12-16); IMMATURE GRANULOCYTES 1.4 % (0-5); LYMPHOCYTES 15.7 % (15-50); MCH 25.9 pg (26.0-34.0); MCHC 30.8 g/dL (31.0-37.0); MEAN PLATELET VOLUME 8.2 fL (7.4-10.4); MONOCYTES 17.3 % (2-11); PLATELET COUNT 550 10x3/uL (130-400); RBC 3.63 10x6/uL (4.00-5.40); RDW 16.5 % (11.5-14.5); WBC 6.4 10x3/uL (4.8-10.8)
[2020-04-25 06:46] LABS: ANION GAP 9.5 mmol/L (8-16); CALCIUM 9.1 mg/dL (8.5-10.1); CARBON DIOXIDE 28.5 mmol/L (21.0-32.0); CREATININE - SERUM 0.9 mg/dL (0.6-1.3)
[2020-04-25 08:00] VITALS: BP 111/66
--- NOTE | 2020-04-25 08:05 | NUR ---
SITTING UP IN BED EATING BREAKFAST, DENIES ANY NEEDS AT THIS TIME, C/L AND FLUIDS IN REACH.
--- NOTE | 2020-04-25 12:22 | NUR ---
UP IN W/C, DENIES ANY NEEDS AT THIS TIME, C/L AND FLUIDS IN REACH.
--- NOTE | 2020-04-25 14:02 | NUR ---
Nutrition Follow-up: Chart reviewed. Sterlingo has been stable per MD notes. Diet: Regular [facility] Soft PO intake: ~50% average x last 9 meals. She states that her appetite is "funny" she likes the soups that she gets on meal trays. She wants fresh fruit every meal. She likes Boost and states that she has been drinking them. Last BM: 04/21/20. WT: 116# (04/17/20) Meds reviewd. Labs noted: Na 133(L). Recommend continue current diet. Will update food preferences. RD following.
--- NOTE | 2020-04-25 15:57 | NUR ---
UP IN W/C READING, DENIES ANY NEEDS AT THIS TIME, C/L AND FLUIDS IN REACH.
--- NOTE | 2020-04-25 19:18 | NUR ---
RESTING IN BED TAKING BREATHING TREATMENT. NO DISTRESS NOTED. CALL LIGHT IN REACH.
[2020-04-25 19:42] VITALS: BP 122/77
--- NOTE | 2020-04-26 01:29 | NUR ---
RESTING IN BED WITH EYES CLOSED AND RESPIRATIONS UNLABORED. NO DISTRESS NOTED.
--- NOTE | 2020-04-26 05:27 | NUR ---
QUIET HOURS. NO ACUTE CHANGES IN CONDITION THIS SHIFT. IS WEARING BRACE AND SHOES IN BED BUT WILL NOT ALLOW ME TO TAKE THEM OFF. SHE STATES SHE PREFERS TO LEAVE THEM ON. RESPIRATIONS UNLABORED. NO DISTRESS NOTED.
[2020-04-26 08:00] VITALS: BP 143/71
--- NOTE | 2020-04-26 08:00 | NUR ---
PT RESTING IN BED WITH EYES OPEN CALL LIGHT IN REACH NO PROBLEMS WILL MONITER
--- NOTE | 2020-04-26 15:32 | NUR ---
I have reviewed this patient and I concur with the Shift Assessment completed by the Licensed Practical Nurse today this shift.
--- NOTE | 2020-04-26 18:28 | NUR ---
PT RESTING IN BED WITH EYES OPEN CALL LIGHT IN REACH NO PROBLEMS WILL MONITER
[2020-04-26 19:57] VITALS: BP 126/58
--- NOTE | 2020-04-26 20:02 | NUR ---
AWAKE AND ALERT. SITTING IN WHEELCHAIR TALKING WITH SON. RESPIRAITONS UNLABORED. SON JUST REMOVED LEFT LEG BRACE. NO DISTRESS NOTED. CALL LIGHT IN REACH.
--- NOTE | 2020-04-26 22:00 | NUR ---
RESTING IN BED WITH RESPIRAITONS UNLABORED. NO DISTRESS NOTED. CALL LIGHT IN REACH.
--- NOTE | 2020-04-27 00:15 | NUR ---
SLEEPING WITH RESPIRATIONS UNLABORED. CALL LIGHT IN REACH.
--- NOTE | 2020-04-27 02:00 | NUR ---
EYES CLOSED, RESPIRAITONS UNLABORED. NO DISTRESS NOTED.
--- NOTE | 2020-04-27 05:29 | NUR ---
QUIET HOURS. NO ACUTE CHANGES IN CONDITION THIS SHIFT. RESTING IN BED WITH NO DISTRESS NOTED.
--- NOTE | 2020-04-27 08:36 | NUR ---
PT RESTING IN BED WITH EYES OPEN CALL LIGHT IN REACH WILL MONITER
[2020-04-27 11:39] VITALS: BP 124/63
--- NOTE | 2020-04-27 17:18 | NUR ---
I have reviewed this patient and I concur with the Shift Assessment completed by the Licensed Practical Nurse today this shift.
--- NOTE | 2020-04-27 17:58 | NUR ---
PT RESTING IN BED WITH EYES OPEN CALL LIGHT IN REACH NO PROBLEMS WILL MONITER
[2020-04-27 19:55] VITALS: BP 123/70
--- NOTE | 2020-04-27 20:02 | NUR ---
AWAKE AND ALERT. RESTING IN BED WITH RESPIRAITONS UNLABORED. NO DISTRESS NOTED. CALL LIGHT IN REACH.
--- NOTE | 2020-04-27 23:06 | NUR ---
RESTING IN BED WITH EYES CLOSED AND RESPIRAITONS UNLABORED. NO DISTRESS NOTED.
--- NOTE | 2020-04-28 01:30 | NUR ---
SLEEPING WITH RESPIRAITONS UNLABORED. NO DISTRESS NOTED.
--- NOTE | 2020-04-28 05:04 | NUR ---
QUIET HOURS. NO ACUTE CHANGES IN CONDITION THIS SHIFT. RESTING IN BED WITH RESPIRAITONS UNLABORED.
--- NOTE | 2020-04-28 07:17 | NUR ---
RESTING WO C/O PAIN. NO DISTRESS NOTED. CL IN REACH.
[2020-04-28 07:21] LABS: ANION GAP 10.5 mmol/L (8-16); CALCIUM 9.4 mg/dL (8.5-10.1); CARBON DIOXIDE 27.5 mmol/L (21.0-32.0); CREATININE - SERUM 0.9 mg/dL (0.6-1.3)
--- NOTE | 2020-04-28 07:33 | RHP ---
PATIENT: FABBY IGLESIAS MEDICAL RECORD: [id number] ACCOUNT: [id number] LOCATION:[id number] : [birth year] ADMISSION DATE: 04/16/20 REHABILITATION HISTORY AND PHYSICAL EXAMINATION POST ADMISSION PHYSICIAN EXAMINATION ADMITTING DIAGNOSIS: Pelvic fracture. HISTORY OF PRESENT ILLNESS: The patient is an 84-year-old female patient of Dr. Granados, lives in independent living apartment, at a facility. She was reported to the ER that she had just had breakfast, was in the living room, ambulating with a walker when she was going to turn on the radio and she felt a wave of weakness and fell down. She is not sure exactly how long she was on the floor. When she did not show up for a group lunch at that day, they had been looking for her and found her on the floor. She was on the floor for an unknown period of time, but presumably from breakfast to lunch. She was brought to the ED by ambulance, was found to have a fracture of the pubic ramus, got a history of neuropathy, COPD, hypertension, chronic back pain, chronic weakness, vascular disease. The patient has a BMI of 21.4. FOOD ALLERGIES ARE EGGS, ALL DAIRY PRODUCTS, POTATOES AND TOMATOES. She will need to be followed by nutritional department for nutritional needs. She has also got some atelectasis or possibly an early pneumonia on her chest x-ray. During her rehab stay, she will also be followed for a small amount of rhabdomyolysis and near-syncope, the open wound. 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 She will also be continued to monitor her renal functions and her CK. Her son is to clarify her code status at some point. The patient is apparently demented. She is very pleasant, loves to talk about the past. BARRIERS TO DISCHARGE: Include loss of mobility, pain management, living alone, bowel and bladder training. She is monitored closely for lab values, cognition problems, medication adjustments, gait disturbance, impaired mobility, dyspnea on exertion. She is a high fall risk, got proximal muscle weakness. Currently, the patient is max assist with ADLs and mobility, only going two feet with a rolling walker. She needs intensive inpatient therapy in order to return back to her assisted living. COMORBIDITIES: Include COPD, dementia, falls, hypertension, hypothyroidism, rhabdomyolysis, weakness and neuropathy. She has also got some constipation, chronic wound to her left leg, cough and hyponatremia. PAST MEDICAL HISTORY: Significant for neuropathy, thyroid problems. She has got a chronic back pain, postmenopausal. PAST SURGICAL HISTORY: Includes hysterectomy. She has had back surgery, hand surgery. ALLERGIES: CYMBALTA, MORPHINE, NAPROXEN AND ALSO FOOD ALLERGIES ABOVE. CURRENT MEDICATIONS: Include Floranex 1 cap daily, she is on VESIcare 10 mg daily, sodium chloride 1 gram daily, she is on Flonase nasal spray daily, she is on B12 50 mcg daily, vitamin D 1000 units daily, calcium carbonate 500 mg daily, Brovana 15 mcg b.i.d., budesonide 0.5 mg b.i.d., Protonix 40 mg daily, Synthroid 75 mcg daily and MiraLax 17 grams in 8 ounces of water daily. HABITS: No current alcohol or tobacco use. HISTORY AND PHYSICAL [id number] FABBY IGLESIAS FAMILY HISTORY: Noncontributory. SOCIAL HISTORY: The patient hopes to return back to her independent living center. REVIEW OF SYSTEMS: GENERAL: Does complain of weakness and fatigue. HEENT: Denies cold, cough, or congestion. CARDIOVASCULAR: Denies any chest pain. PHYSICAL EXAMINATION: VITAL SIGNS: Stable, afebrile. She is a little bit tachycardic. GENERAL: An elderly female, in no acute distress upon exam. HEENT: Normocephalic and atraumatic. Mucosa moist. NECK: Supple. No lymphadenopathy. LUNGS: Clear in upper hdez, decreased breath sounds in the bases. HEART: Regular rate and rhythm. ABDOMEN: Soft, benign, and nondistended. Positive bowel sounds times 4. EXTREMITIES: No clubbing, cyanosis or edema. She does have some pain to palpation around her pelvic region. NEUROLOGIC: She does have noted pretty severe proximal muscle weakness, especially of her thighs and upper arms. LABORATORY DATA: White count is 11.3, H&H 9.6 and 30.8, platelet count is 474. Her sodium is 135, potassium 4.2, BUN and creatinine of 32 and 0.8, blood sugar is noted to be 98. ASSESSMENT: This is an 84-year-old female patient admitted to rehab with a working diagnosis of pelvic fracture. The patient has potential to make improvement. We instituted the following multidisciplinary therapies including, but not limited to physical, occupational, respiratory, speech, nutritional services, prosthetics and orthotics. Given her complex medical condition and risk of further medical complications, rehabilitation services cannot be provided at a low level of care such as fdc facility. PLAN: 1. Admit to [facility] for intensive inpatient therapy to include the following disciplines; A. Physical therapy to improve gait, all transfer skills and bed mobility to a modified independent level. B. Occupational therapy to improve activities of daily living. C. Case management to help with discharge planning and placement options. D. Nutrition to assist with nutritional needs. E. Rehabilitation nursing to assist in monitoring the patient's underlying medical conditions and to assist with any type of bowel or bladder management. 2. The patient's current medication and medical care will be continued. 3. The patient will be placed on standard fall precautions. 4. We will watch her sodium level closely throughout her stay. 5. I will see again in the a.m. TRANSINT:[id number] Voice Confirmation ID: [id number] DOCUMENT ID: [id number] RUBIO notes whether there has been none or any medical/functional HISTORY AND PHYSICAL [id number] FABBY IGLESIAS change since admission: - No change since prescreen. RUBIO attests patient continues to be appropriate for IRF: - Continues to be appropriate. BEA BLUNT MD at 0733 CC: [id number] DICTATION DATE: 04/17/20 0848 PLASTIC MACHINE OPERATOR: 04/17/20 1001 ADM IN [facility] [address] [place] [address]
[2020-04-28 08:02] LABS: HEMATOCRIT 31.8 % (36.0-48.0); HEMOGLOBIN 9.7 g/dL (12-16); LYMPHOCYTES 14.9 % (15-50); MCHC 30.5 g/dL (31.0-37.0); MCV 85.3 fL (80.0-100.0); MEAN PLATELET VOLUME 8.6 fL (7.4-10.4); NEUTROPHILS 60.9 % (40-80); PLATELET COUNT 585 10x3/uL (130-400); RBC 3.73 10x6/uL (4.00-5.40); RDW 16.5 % (11.5-14.5); WBC 7.3 10x3/uL (4.8-10.8)
[2020-04-28 08:03] VITALS: BP 137/72
--- NOTE | 2020-04-28 10:49 | NUR ---
PARTICIPATED IN THERAPY THIS AM.
--- NOTE | 2020-04-28 14:39 | NUR ---
NO CHANGE IN ASSESSMENT. IN ROOM AT THIS TIME. NO DISTRESS NOTED.
--- NOTE | 2020-04-28 16:09 | NUR ---
REFERRAL HAS BEEN FAXED TO [facility] FOR POSSIBLE ADMISSION TO [facility] OR [facility]. TENATIVE DC DATE IS 05/02/20. WILL CONTINUE TO FOLLOW WITH PATIENT.
--- NOTE | 2020-04-28 19:20 | NUR ---
RECEIVED PT SITTING UP IN W/C. ALERT AND ORIENTED X4. DENIES ANY NEEDS OR PAIN. NO SIGNS OF ACUTE DISTRESS NOTED. SHIFT ASSESSMENT COMPLETE. CALL LIGHT AND WATER WITHIN REACH. FALL PRECAUTIONS IN PLACE. CPOC
[2020-04-28 20:26] VITALS: BP 113/72
--- NOTE | 2020-04-29 01:30 | NUR ---
PT LYING IN BED EYES CLOSED RESTING QUIETLY. RR EVEN AND UNLABORED. CALL LIGHT WITHIN REACH. FALL PRECAUTIONS IN PLACE. CPOC
--- NOTE | 2020-04-29 03:40 | NUR ---
ASSISTED PT TO RESTROOM AND BACK TO BED WITH MIN ASSIST. PT PERFORMED HAND HYGIENE. NO OTHER NEEDS VOICED. CALL LIGHT WITHIN REACH. FALL PRECAUTIONS IN PLACE. CPOC
--- NOTE | 2020-04-29 06:55 | NUR ---
RESTING WO DISTRESS. RESP EVEN AND UNLABORED.CL IN REACH.
[2020-04-29 07:55] VITALS: BP 117/69
--- NOTE | 2020-04-29 11:40 | NUR ---
SHOWER TODAY PER STAFF.
--- NOTE | 2020-04-29 11:42 | NUR ---
PARTICIPATING IN THERAPY.
--- NOTE | 2020-04-29 15:22 | NUR ---
NO CHANGE IN ASSESSMENT. RESTING IN ROOM WO C/O PAIN. CL IN REACH.
--- NOTE | 2020-04-29 15:59 | NUR ---
Nutrition Follow-up: Diet: Regular [facility] Soft + Boost TID PO intake: ~45% average x last 10 meals. She reports that her appetite is "much better today." She states that she has been enjoying her meals a lot more now that she has been filling out her menu. She states that she is drinking 3 Boost per day. Last BM: "yesterday" per patient report, last recorded BM= 04/21/20. Wt: 116# (04/17/20), no new weight Meds and labs reviewed Recommend getting new weight. Recommend continue current diet and oral nutrition supplements. RD following.
--- NOTE | 2020-04-29 18:30 | NUR ---
WO DISTRESS. RESP EVEN AND UNLABORED. CL IN REACH.
[2020-04-29 19:18] VITALS: BP 119/68
--- NOTE | 2020-04-29 19:18 | NUR ---
RECEIVED PT LYING IN BED AWAKE. ALERT AND ORIENTED X4. DENIES ANY NEEDS OR PAIN. NO SIGNS OF ACUTE DISTRESS NOTED. VS STABLE. SHIFT ASSESSMENT COMPLETE. CALL LIGHT AND WATER WITHIN REACH. FALL PRECAUTIONS IN PLACE. CPOC
--- NOTE | 2020-04-30 00:03 | NUR ---
PT LYING IN BED SUPINE EYES CLOSED RESTING QUIETLY. HOB ELEVATED. RR EVEN AND UNLABORED. CALL LIGHT WITHIN REACH. FALL PRECAUTIONS IN PLACE. CPOC
--- NOTE | 2020-04-30 03:12 | NUR ---
PT LYING IN BED EYES CLOSED RESTING QUIETLY. RR EVEN AND UNLABORED. CALL LIGHT WITHIN REACH. FALL PRECAUTIONS IN PLACE. CPOC
--- NOTE | 2020-04-30 05:47 | NUR ---
PT LYING IN BED SUPINE EYES CLOSED RESTING QUIETLY. HOB ELEVATED. CALL LIGHT AND WATER WITHIN REACH. FALL PRECAUTIONS IN PLACE. CPOC
--- NOTE | 2020-04-30 08:11 | NUR ---
SITTING UP IN BED EATING BREAKFAST, DENIES ANY NEEDS AT THIS TIME, C/L AND FLUIDS IN REACH.
[2020-04-30 08:27] VITALS: BP 133/59
--- NOTE | 2020-04-30 11:00 | NUR ---
I have reviewed this patient and I concur with the Shift Assessment completed by the Licensed Practical Nurse today this shift.
--- NOTE | 2020-04-30 12:08 | NUR ---
UP IN W/C, DENIES ANY NEEDS AT THIS TIME, C/L AND FLUIDS IN REACH.
--- NOTE | 2020-04-30 15:00 | NUR ---
CARE TEAM MEETING: PATIENT, PATIENT SON AND DAUGHTER FRANK ATTENDED THE MEETING. THEIR QUESTIONS AND CONCERNS WERE ADDRESSED. NOTIFIED CAREY AT [facility] AND THEY WILL ASSCESS PATIENT IN THE AM. TENATIVE DISCHARGE DATE IS 05/02/20. WILL CONTINUE TO FOLLOW WITH PATIENT.
--- NOTE | 2020-04-30 16:08 | NUR ---
SITTING UP IN W/C, DENIES ANY NEEDS AT THIS TIME, C/L AND FLUIDS IN REACH.
--- NOTE | 2020-04-30 19:25 | NUR ---
AWAKE AND ALERT. RESTING IN WHEELCHAIR WITH RESPIRAITONS UNLABORED. ASSISTED TO BATHROOM AND URINE SPECIMEN COLLECTED ORDERED AND SENT TO LAB. ASSISTED BACK TO BED. NO DISTRESS NOTED.
[2020-04-30 19:50] LABS: BACTERIA MANY /hpf (NEGATIVE); BILIRUBIN NEGATIVE (NEGATIVE); EPITHELIAL CELLS 0-5 /hpf (0-5); GLUCOSE NEGATIVE (NEGATIVE); KETONE NEGATIVE (NEGATIVE); NITRITE NEGATIVE (NEGATIVE); RED CELLS - URINE 0-5 /hpf (0-5); UROBILINOGEN NORMAL (NORMAL)
[2020-04-30 21:29] VITALS: BP 142/74
--- NOTE | 2020-05-01 03:09 | NUR ---
SLEEPING WITH RESPIRATIONS UNLABORED. NO DISTRESS NOTED. CALL LIGHT IN REACH.
--- NOTE | 2020-05-01 05:05 | NUR ---
QUIET HOURS. NO ACUTE CHANGES IN CONDITION THIS SHIFT. RESTING IN BED WITH NO DISTRESS NOTED.
--- NOTE | 2020-05-01 08:00 | NUR ---
PT RESTING IN BED WITH EYES OPEN CALL LIGHT IN REACH WILL MONITER
--- NOTE | 2020-05-01 12:00 | NUR ---
I have reviewed this patient and I concur with the Shift Assessment completed by the Licensed Practical Nurse today this shift.
--- NOTE | 2020-05-01 16:03 | NUR ---
PATIENT FAMILY IS HAVING FINANCING ISSUES AND WOULD LIKE A REFERRAL TO A SNF. WILL CONTNUE TO FOLLOW WITH PATIENT.
--- NOTE | 2020-05-01 18:43 | NUR ---
PT RESTING IN BED WITH EYES OPEN CALL LIGHT IN REACH WILL MONITER
[2020-05-01 19:00] VITALS: BP 121/74
--- NOTE | 2020-05-01 19:15 | NUR ---
RECEIVED PT LYING IN BED AWAKE. ALERT AND ORIENTED X4. DENIES ANY NEEDS OR PAIN. NO SIGNS OF ACUTE DISTRESS NOTED. CALL LIGHT WITHIN REACH. FALL PRECAUTIONS IN PLACE. CPOC
--- NOTE | 2020-05-02 02:13 | NUR ---
PT LYING IN BED EYES CLOSED RESTING QUIETLY. RR EVEN AND UNLABORED. CALL LIGHT WITHIN REACH. FALL PRECAUTIONS IN PLACE. CPOC
--- NOTE | 2020-05-02 04:46 | NUR ---
PT LYING IN BED EYES CLOSED RESTING QUIETLY. RR EVEN AND UNLABORED. CALL LIGHT WITHIN REACH. FALL PRECAUTINOS IN PLACE. CPOC
[2020-05-02 06:05] LABS: ANION GAP 10.1 mmol/L (8-16); CALCIUM 9.2 mg/dL (8.5-10.1); CARBON DIOXIDE 27.9 mmol/L (21.0-32.0); CREATININE - SERUM 0.9 mg/dL (0.6-1.3)
[2020-05-02 06:45] LABS: HEMATOCRIT 30.9 % (36.0-48.0); HEMOGLOBIN 9.7 g/dL (12-16); LYMPHOCYTES 19.3 % (15-50); MCH 26.9 pg (26.0-34.0); MCHC 31.4 g/dL (31.0-37.0); MCV 85.8 fL (80.0-100.0); MEAN PLATELET VOLUME 8.7 fL (7.4-10.4); NEUTROPHILS 57.7 % (40-80); PLATELET COUNT 446 10x3/uL (130-400); RDW 16.1 % (11.5-14.5)
[2020-05-02 08:45] VITALS: BP 107/61
--- NOTE | 2020-05-02 11:30 | NUR ---
PATIENT DISCHARGING TO [facility] VIA FACILITY VAN. NO HOME HEALTH OR DM NEEDED AT THIS TIME. AN APPOINTMENT WITH [facility] IS 05/08/20 @ 11:00 , WILL BE RESCHEDULED SINCE DISCHARGEING TO SNF. CONSTANTINO SIGNED, IMM SERVED AND EXPLAINED, ONE GIVEN TO PATIENT AND ONE FILED IN CHART. NO COMPARE DATA REVIEWED WITH PATIENT. PATIENT FAMILY CHOSE SNF. DISCHARGE INSTRUCTIONS FAXED TO PCP, SNF AND REVIEWED WITH PATIENT PER PRIMARY NURSE.
--- NOTE | 2020-05-02 13:16 | NUR ---
GIANNI FROM [facility] HERE TO GET PT FOR TRANSPORT. ALL PERSONAL BELONGINGS WITH PT AND LEFT FLOOR VIA W/C. REPORT CALLED TO MAGAN JIMENEZ. ALL RECORDS WERE FAXED TO FACILITY PRIOR TO DISCHARGE.
== END 2020-05-02 13:18 | DRG 560 ==
LOC: D.REHAB 15:13
PROVIDERS: ADMIT Emergency Medicine; ATTEND Emergency Medicine
DX: S32.509D Unspecified fracture of unspecified pubis, subsequent encounter for fracture with routine healing (principal); M62.82 Rhabdomyolysis; E87.1 Hypo-osmolality and hyponatremia; W19.XXXD Unspecified fall, subsequent encounter; J44.9 Chronic obstructive pulmonary disease, unspecified; F03.90 Unspecified dementia, unspecified severity, without behavioral disturbance, psychotic disturbance, mood disturbance, and anxiety; I10 Essential (primary) hypertension; E03.9 Hypothyroidism, unspecified; R53.1 Weakness; G62.9 Polyneuropathy, unspecified; R05 Cough; K59.00 Constipation, unspecified; M16.12 Unilateral primary osteoarthritis, left hip

== ENCOUNTER 2020-05-30 13:30 | Inpatient (IN) | payer MEDICARE ==
[2020-05-30] VITALS (7 sets, daily range): BP systolic 99–1103; BP diastolic 60–77; BMI 24.7
[~2020-05-30] VITALS: Ht 157.5 cm; Wt 60.5 kg
[2020-05-30 14:17] LABS: BASOPHILS 0.1 % (0-2); EOSINOPHILS 0 % (0-7); HEMATOCRIT 40.5 % (36.0-48.0); HEMOGLOBIN 12.9 g/dL (12-16); IMMATURE GRANULOCYTES 0.8 % (0-5); LYMPHOCYTES 5.3 % (15-50); MCH 26.4 pg (26.0-34.0); MCHC 31.9 g/dL (31.0-37.0); MEAN PLATELET VOLUME 9.8 fL (7.4-10.4); NEUTROPHILS 87.8 % (40-80); PLATELET COUNT 423 10x3/uL (130-400); RBC 4.88 10x6/uL (4.00-5.40); RDW 16.2 % (11.5-14.5); WBC 17.3 10x3/uL (4.8-10.8)
[2020-05-30 14:22] LABS: CALC OSMOLALITY 309 mosm/kg (275-300); CALCIUM 10.4 mg/dL (8.5-10.1); CHLORIDE - SERUM 104 mmol/L (98-107); CREATININE - SERUM 2.8 mg/dL (0.6-1.3); POTASSIUM - SERUM 4.6 mmol/L (3.5-5.1); SODIUM 140 mmol/L (136-145); UREA NITROGEN 89 mg/dL (7-18); eGFR NON AFRICAN AMERICAN 17 mL/min (90-120)
[2020-05-30 14:24] LABS: GLUCOSE 168 mg/dL (74-106)
[2020-05-30 14:33] LABS: INR 1.14 (0.85-1.17); PROTIME 14.6 SECONDS (11.6-15.0)
[2020-05-30 14:38] LABS: ALBUMIN 2.5 g/dL (3.4-5.0); ALKALINE PHOSPHATASE 89 U/L (30-120); ALT (SGPT) 27 U/L (10-68); CKMB 1.8 U/L (0.0-3.6); CREATINE KINASE 651 UL (21-215); MAGNESIUM - SERUM 1.8 mg/dL (1.8-2.4); PRO BNP 3216 pg/mL (0-450); PROTEIN - SERUM 7.5 g/dL (6.4-8.2)
[2020-05-30 14:39] LABS: D-DIMER-QUANTITATIVE 3.12 ug/mLFEU (0.20-0.54)
[2020-05-30 14:57] LABS: BILIRUBIN NEGATIVE (NEGATIVE); KETONE NEGATIVE (NEGATIVE); NITRITE NEGATIVE (NEGATIVE); UROBILINOGEN NORMAL (NORMAL)
[2020-05-30 15:00] LABS: TROPONIN-I < 0.017 ng/mL (0.000-0.060)
[2020-05-30 15:07] LABS: WHITE CELLS - URINE 25-50 /hpf (NEGATIVE)
[2020-05-30 15:10] LABS: BACTERIA MANY /hpf (NEGATIVE)
--- NOTE | 2020-05-30 16:43 | NUR ---
PT TO ROOM FROM ER ON CART, HAD TO ASSIST TO BED. PT ON 2 LITERS NC. SMALL SPOT OF OPEN SKIN ON BUTTOCK NOTED. BRUISE TO LEFT BE NOTED. PT IS TALKING BUT NOT MAKING LOTS OF SENSE. DEPENDS REMOVED.
--- NOTE | 2020-05-30 17:05 | NUR ---
URBAN, SON OF PT, NOTIFIED OF PT ADMISSION AND CONDITION AT THIS TIME.
[2020-05-30] MEDS ORDERED: GUAIFENESI100 MG/5 M PO (18:32)
[2020-05-30] MEDS ORDERED: REMERON15 MG PO (18:42)
[2020-05-30] MEDS ORDERED: DICLOFENAC SODI50 MG PO (18:46)
--- NOTE | 2020-05-30 19:30 | NUR ---
PT IN BED, AWAKE, CONFUSED, PT RESP EVEN AND UNLABORED. NO DISTRESS NOTED, CL IN REACH, SR UP X 2.
[2020-05-31 01:09] VITALS: BP 96/61
[2020-05-31 04:27] VITALS: BP 98/47
--- NOTE | 2020-05-31 05:14 | NUR ---
I have reviewed this patient and I concur with the Shift Assessment completed by the Licensed Practical Nurse today this shift.
[2020-05-31 06:00] LABS: BASOPHILS 0.2 % (0-2); EOSINOPHILS 0 % (0-7); HEMOGLOBIN 10.6 g/dL (12-16); LYMPHOCYTES 4.6 % (15-50); MCHC 32.1 g/dL (31.0-37.0); MONOCYTES 6.2 % (2-11); RBC 4.08 10x6/uL (4.00-5.40); RDW 16.1 % (11.5-14.5)
[2020-05-31 06:06] LABS: MCV 80.9 fL (80.0-100.0); PLATELET COUNT 330 10x3/uL (130-400); WBC 11.4 10x3/uL (4.8-10.8)
[2020-05-31 06:43] LABS: ALBUMIN 1.9 g/dL (3.4-5.0); ALKALINE PHOSPHATASE 71 U/L (30-120); BILIRUBIN - TOTAL 0.59 mg/dL (0.2-1.3); CALCIUM 9.4 mg/dL (8.5-10.1); CARBON DIOXIDE 16.6 mmol/L (21.0-32.0); CHLORIDE - SERUM 109 mmol/L (98-107); CKMB 1.2 U/L (0.0-3.6); CREATININE - SERUM 2.1 mg/dL (0.6-1.3); PROTEIN - SERUM 5.9 g/dL (6.4-8.2); SODIUM 140 mmol/L (136-145); TROPONIN-I < 0.017 ng/mL (0.000-0.060); UREA NITROGEN 82 mg/dL (7-18); eGFR NON AFRICAN AMERICAN 24 mL/min (90-120)
[2020-05-31 06:48] LABS: ALT (SGPT) 17 U/L (10-68); CALC OSMOLALITY 304 mosm/kg (275-300); CREATINE KINASE 464 UL (21-215); GLUCOSE 116 mg/dL (74-106); POTASSIUM - SERUM 3.6 mmol/L (3.5-5.1)
--- NOTE | 2020-05-31 07:51 | HP ---
PATIENT: FABBY IGLESIAS MEDICAL RECORD: [id number] ACCOUNT: [id number] LOCATION:[address] : 36 ADMISSION DATE: 05/30/20 PCP: SHERIF TONEY HISTORY AND PHYSICAL EXAMINATION ADMITTING PHYSICIAN: Sherif Toney MD REASON FOR ADMISSION: Cough, congestion, and fatigue. HISTORY OF PRESENT ILLNESS: The patient is an 84-year-old female who incurred a pelvic fracture approximately a month ago. She was hospitalized at [facility] and then rehab discharged on the to a [facility] rehabilitation. The patient states she had done fairly well there and was able to walk with a rolling walker with assistance. She was transferred to [facility] ER today with increasing shortness of breath, altered mental status from the [facility]. There has been no documented fever. She has been in quarantine for Covid, though she had been Covid negative in the hospital. At the [facility] quarantine because of being recently in the hospital. The patient has history of COPD but states she is a nonsmoker. She denies any fever currently or chest pain. PAST MEDICAL HISTORY: Pelvic fracture 04/16 plus [facility] admission and discharge, COPD, rhabdomyolysis post-fall in April of this year, near syncope, essential hypertension, osteoarthritis, dementia, hypertension, hypothyroidism, neuropathy, chronic constipation, chronic wound on the left leg, history of hyponatremia, chronic back pain, and postmenopausal. PAST SURGICAL HISTORY: She has had surgery for lumbar spine, hand surgery, and hysterectomy. ALLERGIES: MORPHINE, CYMBALTA, NAPROXEN, AND SOME FOOD ALLERGIES. FAMILY HISTORY: Noncontributory. SOCIAL HISTORY: No history of tobacco use or alcohol. MEDICATIONS: Calcium carbonate 500 mg daily, Symbicort 80/4.5 two puffs b.i.d., Flonase nasal spray 1 nasal spray daily, Florajen 1 capsule p.o. daily, levothyroxine 75 mcg p.o. q.a.m., VESIcare 10 mg a day, biotin 5 mg a day, vitamin B12 50 mcg p.o. daily, vitamin D3 500 mg daily, and Prilosec 20 mg p.o. daily. REVIEW OF SYSTEMS: GENERAL: The patient had been fatigued. Denies fever. HEENT: No recent visual change, somewhat hard of hearing. Denies headache. RESPIRATORY: Admits to mild cough, but no sputum production. Denies shortness of breath. Denies history knowning she has COPD. CARDIAC: No chest pain, palpitations, or peripheral edema. GASTROINTESTINAL: No nausea, vomiting, change in stools or blood per rectum. GENITOURINARY: Has mild incontinence. GYNECOLOGIC: No vaginal bleeding. ENDOCRINE: Denies polyuria, polydipsia, heat or cold intolerance. NEUROLOGIC: Denies history of stroke. Admits her memory is not very good. PHYSICAL EXAMINATION: HISTORY AND PHYSICAL [id number] FABBY IGLESIAS VITAL SIGNS: Her pulse was 124 and regular initially, after fluid it was 102, respiratory rate is 23, blood pressure 99/64, sat 96 on room air. GENERAL: The patient is awake and conversant, but disoriented to place and time. HEENT: Normocephalic. Eyes are clear. Pupils reactive. Oropharynx shows dry mucous membranes. NECK: Supple. CHEST: She has decreased pectoralis muscle mass bilaterally. Her lungs show distant breath sounds with crackles in the right base. No retractions. HEART: Tachycardic without murmur. ABDOMEN: Soft, nontender. EXTREMITIES: 2+ pretibial edema bilaterally. She has an abrasion on her left lower extremity, not currently open. NEUROLOGIC: Oriented to person, but not to place and time. No obvious motor or sensory deficit appreciated. LABORATORY DATA: White count 17,000 with left shift. Platelet counts 423,000. Chemistry: BUN and creatinine are 89 and 2.8. I do not have baseline currently. ProBNP is 3216. Creatinine kinase is 651. Lactic acid is 4.9. Potassium 4.6. INR is 1.13. Urine was grossly infected with bacteria, 25-50 white cells, many bacteria. Covid screen is pending. Chest x-ray shows right lower lobe pneumonia. ASSESSMENT: 1. Right lower lobe hospital-acquired pneumonia. 2. Dementia. 3. Acute renal insufficiency. 4. Urinary tract infection. 5. Hypothyroidism. 6. History of hypertension, currently hypotensive. PLAN: Dr. Root has given the patient normal saline per sepsis protocol, will be cultured, placed on broad-spectrum IV antibiotics. She will be Covid rule out initially with further workup to follow. We will attempt to reach family to assess her code status. TRANSINT:[id number] Voice Confirmation ID: [id number] DOCUMENT ID: [id number] JONATHAN OJEDA MD at 0751 CC: [id number] DICTATION DATE: 05/30/20 1624 BIOCHEMIST: 05/30/202010 ADM IN [facility] [address] [id number]
[2020-05-31 09:06] VITALS: BP 107/66
--- NOTE | 2020-05-31 10:36 | NUR ---
PT TRYING TO FEED SELF BUT SPILLING JUICE AND CRUMBS ON BED. TRIED TO ASSIST BUT SEEMS TO BE HAVING TROUBLE UNDERSTANDING DRINKING FROM STRAW ETC. MEDS A PROBLEM ALSO. CHANGED LINENS, POSITIONED IN BED. AVELAR PLACED PER ORDER FROM DR OJEDA. @ 700 ML RETURN OF DARK DAGO URINE, TURNING INTO CREAMY AND CLOUDY LOOKING AT END OF DRAINAGE. LACTIC ACID LAB SENT. FLUID BOLUS GIVEN AND ANTIBIOTICS STARTED.
[2020-05-31 11:23] VITALS: BP 106/64
[2020-05-31 13:23] VITALS: Ht 157.5 cm; Wt 60.5 kg
--- NOTE | 2020-05-31 19:30 | NUR ---
PT IN BED, EYES CLOSED, RESP EVEN AND UNLABORED. NO DISTRESS NOTED, AVELAR TO DRAINAGE BAG, DAGO URINE NOTED TO BAG, CL IN REACH, SR UP X 2.
[2020-05-31 20:00] VITALS: BP 114/62
[2020-06-01 02:00] VITALS: BP 122/56
[2020-06-01 05:45] LABS: HEMATOCRIT 36.1 % (36.0-48.0); HEMOGLOBIN 11.7 g/dL (12-16); MCH 26.4 pg (26.0-34.0); MCHC 32.4 g/dL (31.0-37.0); MCV 81.5 fL (80.0-100.0); MEAN PLATELET VOLUME 10.5 fL (7.4-10.4); PLATELET COUNT 188 10x3/uL (130-400); RBC 4.43 10x6/uL (4.00-5.40); RDW 16.4 % (11.5-14.5); WBC 21.6 10x3/uL (4.8-10.8)
[2020-06-01 05:47] LABS: LYMPHOCYTES 5 % (15-50); MONOCYTES 6 % (2-11); NEUTROPHILS 86 % (40-80); PLATELET ESTIMATE NORMAL; PLATELET MORPHOLOGY PLT CLUMPS PRESENT
[2020-06-01 06:01] LABS: ANION GAP 20.8 mmol/L (8-16); CALCIUM 9.7 mg/dL (8.5-10.1); CARBON DIOXIDE 17.1 mmol/L (21.0-32.0); POTASSIUM - SERUM 3.9 mmol/L (3.5-5.1)
[2020-06-01 06:11] LABS: CREATININE - SERUM 1.4 mg/dL (0.6-1.3)
[2020-06-01 07:36] VITALS: BP 117/66
[2020-06-01 20:09] VITALS: BP 134/79
[2020-06-02 00:38] VITALS: BP 109/87
--- NOTE | 2020-06-02 03:42 | NUR ---
IV D/C TO RIGHT AC. CATHETER TIP INTACT. SEVERAL ATTEMPTS TO REESTABLISH IV ACCESS WAS UNSUCCESSFUL. NOTIFED LAB OF THE NEED FOR THEM TO DRAW AM LAB.
[2020-06-02 04:22] VITALS: BP 110/63
--- NOTE | 2020-06-02 08:39 | NUR ---
PT UNABLE TO SIP ON STRAW OR SWALLOW MEDS. NO AM PO MEDS GIVEN. GAVE PT A SMALL AMOUNT OF WATER AND COUGHING WITH SMALL SIP. WILL CONTINUE TO MONITOR. PT HAS NO IV ACCESS A THIS TIME. VASCULAR ACCESS CONSULTED.
--- NOTE | 2020-06-02 09:24 | NUR ---
LINDA MORRISPERSONNEL ADVISER ACCESS INSERTED A RIGHT WRIST 22G IV.
--- NOTE | 2020-06-02 10:08 | NUR ---
PT INCONTENT OF BOWEL AND COMPLETE LINEN CHANGE DONE. PT GRIMACING AND SHOWING TEETH BUT WILL NOT SAY WORDS OR ANSWER YES/NO QUESTIONS. COCCYX AND BUTTOCK RED BUT BLANCHES. STAGE 3 TO COCCYX AND STAGE 2 AND STAGE 3 TO LEFT BUTTOCK. TURNED PT ON RIGHT SIDE. O2 AT 3L VIA NC. RIGHT WRISTT 22G INFUSING IVF AND IV ABX. CAMERA ON PT IN ROOM AND MONITOR AT NURSES STATION. BED LOW. CL IN REACH. ALARM ON. WILL CONTINUE WITH POC.
[2020-06-02 10:15] LABS: BASOPHILS 0.5 % (0-2); EOSINOPHILS 0 % (0-7); HEMATOCRIT 37.4 % (36.0-48.0); IMMATURE GRANULOCYTES 2.9 % (0-5); LYMPHOCYTES 5.1 % (15-50); MCH 26.3 pg (26.0-34.0); MCHC 32.1 g/dL (31.0-37.0); MCV 81.8 fL (80.0-100.0); MEAN PLATELET VOLUME 9.8 fL (7.4-10.4); MONOCYTES 10.4 % (2-11); NEUTROPHILS 81.1 % (40-80); PLATELET COUNT 236 10x3/uL (130-400); RBC 4.57 10x6/uL (4.00-5.40); RDW 16.7 % (11.5-14.5); WBC 21.4 10x3/uL (4.8-10.8)
[2020-06-02 10:40] LABS: CALCIUM 10.7 mg/dL (8.5-10.1); CARBON DIOXIDE 20.9 mmol/L (21.0-32.0); CREATININE - SERUM 1.1 mg/dL (0.6-1.3)
[2020-06-02 10:42] LABS: ANION GAP 16.8 mmol/L (8-16)
[2020-06-02 10:44] LABS: POTASSIUM - SERUM 2.7 mmol/L (3.5-5.1)
--- NOTE | 2020-06-02 12:04 | NUR ---
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
--- NOTE | 2020-06-02 13:26 | NUR ---
Nutrition Follow-up: Pt in droplet isolation; covid-19 +. Chart reviewed. Nursing reports difficulty swallowing this AM. Noted possible plans for Dobhoff with short-term TF if pt agreeable. Diet: Renal, Ensure TID Wt: 135# (05/31) Labs noted: Na 155, K+ 2.7, Ca 10.7 Meds noted: Protonix, D5 1/2NS @ 100, electrolyte protocol -Rec alternate nutrition 2/2 poor PO intake/difficulty swallowing; RD available to assist as needed. -Need new wt; noted daily wts ordered. -RD following.
--- NOTE | 2020-06-02 14:27 | NUR ---
PT CONFUSED AND WILL NOT RESPOND USING CLEAR WORDS. ASKED PT IF SHE WOULD BE OK WITH TUBE FEEDINGS AND PT JUST STARED AT THIS NURSE AND POINTED AT TV. WILL CONTINUE TO MONITOR.
--- NOTE | 2020-06-02 14:29 | NUR ---
PT GOT OOB. PT PLACED BACK IN BED BY CLINICAL SUPPORT SPECIALIST.
[2020-06-02 16:34] VITALS: BP 125/80
--- NOTE | 2020-06-02 16:41 | NUR ---
PT TURNED TO LEFT SIDE. MEPILEX PLACED ON BUTTOCK.
--- NOTE | 2020-06-02 18:03 | NUR ---
I have reviewed this patient and I concur with the Shift Assessment completed by the Licensed Practical Nurse today this shift.
--- NOTE | 2020-06-02 18:13 | NUR ---
PT LYING IN BED. EYES CLOSED. RESTING UIETYLY. CHEST RISING AND FALLING. BED LOW. CL IN REACH. WILL COTNINUE TO MONITOR.
--- NOTE | 2020-06-02 18:30 | MORECARE ---
CASE MANAGEMENT DISCHARGE SUMMARY PATIENT: FABBY IGLESIAS UNIT: [id number] ADM DATE: 05/30/20 AGE: 84 : 36 SEX: F ROOM/BED: D.8379 AUTHOR: CHAUNCEY LNODON PHYSICIAN: REFERRING PHYSICIAN: JONATHAN OJEDA MD DATE OF SERVICE: 06/02/20 Discharge Plan Patient Name: FABBY IGLESIAS [facility] [facility] 1935 Planned Disposition: Nursing Home Facility Anticipated Discharge Date: Discharge Date: Expected LOS: Initial Reviewer: [email or web address] Initial Review Date: 05/30/2020 Generated: 06/02/20 7:29 pm External Providers External Provider: [facility] Next Contact Date: Service Request Date: Service Type: Resolution: Reviewer: Comments: Patient Name: FABBY IGLESIAS Page [id number] at 1830 All edits/amendments must be made on the electronic document DICTATION DATE: 06/02/201828 GRADUATE ENGINEER: HAMILTON 06/02/201828 RPT#: [id number] DC DATE: STATUS: ADM IN [facility] [address] [place] [address] END OF REPORT
--- NOTE | 2020-06-02 18:37 | MORECARE ---
CASE MANAGEMENT DISCHARGE SUMMARY PATIENT: FABBY IGLESIAS UNIT: [id number] ADM DATE: 05/30/20 AGE: 84 : 36 SEX: F ROOM/BED: D.8884 AUTHOR: CHAUNCEY LONDON PHYSICIAN: REFERRING PHYSICIAN: JONATHAN OJEDA MD DATE OF SERVICE: 06/02/20 Discharge Plan Patient Name: FABBY IGLESIAS [facility] [facility] 1935 [facility] Disposition: [facility] Anticipated Discharge Date: Discharge Date: Expected LOS: Initial Reviewer: [email or web address] Initial Review Date: 05/30/2020 Generated: 06/02/20 7:37 pm Comments DCP- Discharge Planning Updated by [email or web address]: Rodrick Truong on 06/02/20 5:[address] PT IS A LONG-TERM RESIDENT AT [facility]. FAXED CLINICAL UPDATE TO [facility]. ONE MEDICALLY STABLE PT WILL RETURN TO THE FACILITY IN A GUSTAVO BED. RODRICK TRUONG Last DP export: 06/02/20 5:30 p Patient Name: FABBY IGLESIAS Page [id number] at 1837 All edits/amendments must be made on the electronic document DICTATION DATE: 06/02/201836 COST MANAGER: HAMILTON 06/02/201836 RPT#: [id number] DC DATE: STATUS: ADM IN [facility] [address] [place] [address] END OF REPORT
--- NOTE | 2020-06-02 19:00 | NUR ---
EVENING ROUNDS COMPLETE. PT LAYING IN BED, NO SIGNS OF DISTRESS. PT DENIES ANY PAIN OR NEEDS AT THIS TIME. CL IN REACH, BED IN LOWEST POSITION. PT IS ORIENTED TO SELF ONLY.
[2020-06-02 20:00] VITALS: BP 117/66
[2020-06-03 04:00] VITALS: BP 155/57
[2020-06-03 07:44] VITALS: BP 133/64
[2020-06-03 10:10] LABS: HEMATOCRIT 34.6 % (36.0-48.0); HEMOGLOBIN 11.1 g/dL (12-16); MCH 25.8 pg (26.0-34.0); MCHC 32.1 g/dL (31.0-37.0); MCV 80.5 fL (80.0-100.0); MEAN PLATELET VOLUME 9.6 fL (7.4-10.4); RDW 16.8 % (11.5-14.5)
[2020-06-03 10:13] LABS: PLATELET COUNT 161 10x3/uL (130-400); WBC 14.7 10x3/uL (4.8-10.8)
[2020-06-03 10:23] LABS: ALBUMIN 1.7 g/dL (3.4-5.0); ANION GAP 11.4 mmol/L (8-16); BILIRUBIN - TOTAL 0.56 mg/dL (0.2-1.3); CALCIUM 10.6 mg/dL (8.5-10.1); CARBON DIOXIDE 23.5 mmol/L (21.0-32.0)
[2020-06-03 10:25] LABS: POTASSIUM - SERUM 2.9 mmol/L (3.5-5.1)
--- NOTE | 2020-06-03 10:26 | NUR ---
LYNNETTE MORRIS ATTEMPTED DOBHOFF NG TUBE BUT WAS UNSUCCESSFUL. REMOVED NG TUBE. NOTIFIED IR FOR THE NEED OF AN NG TUBE PLACED. WILL CTM.
[2020-06-03 10:31] LABS: BASOPHILS 1 % (0-2); LYMPHOCYTES 5 % (15-50); MONOCYTES 8 % (2-11); NEUTROPHILS 71 % (40-80); PLATELET ESTIMATE NORMAL
[2020-06-03 12:52] VITALS: BP 125/68
--- NOTE | 2020-06-03 17:07 | NUR ---
BEGAN 10MEQ POTASSIUM RIDER AND THEN PT WAS TAKEN TO IR FOR DOBHOFF REPOSITION. WILL RESTART INFUSION WHEN PT RETURNS.
[2020-06-03 20:00] VITALS: BP 122/63
--- NOTE | 2020-06-03 22:57 | NUR ---
PATIENT IS RESTING IN BED. SHE IS CONFUSED AND MOANING. SHE HAS A NASAL CANULA AND AVELAR CATHETER. WE WILL CONTINUE TO MONITOR HER RESPIRATORY STATUS.
[2020-06-04 04:00] VITALS: BP 127/75
[2020-06-04 06:26] LABS: BASOPHILS 0.8 % (0-2); HEMATOCRIT 35.3 % (36.0-48.0); HEMOGLOBIN 11.1 g/dL (12-16); IMMATURE GRANULOCYTES 13.6 % (0-5); LYMPHOCYTES 8.3 % (15-50); MCH 25.5 pg (26.0-34.0); MCHC 31.4 g/dL (31.0-37.0); MCV 81.1 fL (80.0-100.0); MEAN PLATELET VOLUME 10.1 fL (7.4-10.4); MONOCYTES 8.8 % (2-11); NEUTROPHILS 67.5 % (40-80); PLATELET COUNT 169 10x3/uL (130-400); RBC 4.35 10x6/uL (4.00-5.40); WBC 12.4 10x3/uL (4.8-10.8)
[2020-06-04 06:43] LABS: ALBUMIN 1.7 g/dL (3.4-5.0); BILIRUBIN - TOTAL 0.63 mg/dL (0.2-1.3); CALCIUM 10.1 mg/dL (8.5-10.1); CARBON DIOXIDE 23.4 mmol/L (21.0-32.0); CREATININE - SERUM 0.9 mg/dL (0.6-1.3); PROTEIN - SERUM 5.6 g/dL (6.4-8.2); VANCOMYCIN - TROUGH 11.9 ug/mL (10.0-20.0)
[2020-06-04 07:17] LABS: ANION GAP 11.4 mmol/L (8-16); POTASSIUM - SERUM 3.8 mmol/L (3.5-5.1)
[2020-06-04 09:09] VITALS: BP 115/60
--- NOTE | 2020-06-04 12:50 | NUR ---
Nutrition Consult/Follow-up: Received consult for TF. Noted Dobhoff placed. Wt: 113# (06/04) Last BM: 06/02 per chart Labs noted: Na 151, Glu 120, Alb 1.7 Meds noted: vitamin B12, Oscal, Protonix, D5 1/2NS @ 75, electrolyte protocol -Start Osmolite 1.0 @ 15 mL/hr and increase by 10 mL/hr q 6 hrs to goal rate of 50 mL/hr + H2O flushes 25 mL q hr. -Monitor wt; noted daily wts ordered. -RD following. Thanks for the consult!
[2020-06-04 16:31] VITALS: BP 115/68
--- NOTE | 2020-06-04 19:20 | NUR ---
PATIENT IS RESTING IN BED. SHE IS PLEASANTLY CONFUSED. SHE IS ON NASAL CANNULA. THEY STARTED HER ON TUBE FEEDING GOING AT 15 ML/HR. I INCREASED HER TO 25 ML/HR. GOAL IS 50 ML/HR. WE WILL CONTINUE TO MONITOR HER RESPIRATORY STATUS.
[2020-06-04 20:00] VITALS: BP 145/94
[2020-06-05] VITALS: BP 106/61
[2020-06-05 04:00] VITALS: BP 112/53
[2020-06-05 06:51] LABS: ANION GAP 14.1 mmol/L (8-16); CALCIUM 9.7 mg/dL (8.5-10.1); CARBON DIOXIDE 22.2 mmol/L (21.0-32.0); POTASSIUM - SERUM 3.3 mmol/L (3.5-5.1)
[2020-06-05 11:52] VITALS: BP 126/60
--- NOTE | 2020-06-05 19:20 | NUR ---
PATIENT IS RESTING IN BED. SHE IS PLEASANTLY CONFUSED. SHE IS ON 5 LITERS NASAL CANNULA. SHE IS ON TUBE FEEDING. WE WILL CONTINUE TO MONITOR HER RESPIRATORY STATUS.
[2020-06-05 20:00] VITALS: BP 138/78
[2020-06-06] VITALS: BP 139/54
[2020-06-06 06:46] LABS: CALC OSMOLALITY 286 mosm/kg (275-300); CALCIUM 9.3 mg/dL (8.5-10.1); CHLORIDE - SERUM 111 mmol/L (98-107); GLUCOSE 98 mg/dL (74-106); MAGNESIUM - SERUM 1.4 mg/dL (1.8-2.4); POTASSIUM - SERUM 3.1 mmol/L (3.5-5.1); SODIUM 142 mmol/L (136-145); UREA NITROGEN 25 mg/dL (7-18); eGFR NON AFRICAN AMERICAN 85 mL/min (90-120)
[2020-06-06 06:48] LABS: CREATININE - SERUM 0.7 mg/dL (0.6-1.3)
[2020-06-06 07:52] LABS: BASOPHILS 0.5 % (0-2); EOSINOPHILS 0.1 % (0-7); HEMATOCRIT 31.8 % (36.0-48.0); HEMOGLOBIN 10.1 g/dL (12-16); IMMATURE GRANULOCYTES 11.5 % (0-5); LYMPHOCYTES 6.7 % (15-50); MCH 25.8 pg (26.0-34.0); MCHC 31.8 g/dL (31.0-37.0); MCV 81.3 fL (80.0-100.0); MEAN PLATELET VOLUME 10.3 fL (7.4-10.4); MONOCYTES 4.7 % (2-11); NEUTROPHILS 76.5 % (40-80); PLATELET COUNT 166 10x3/uL (130-400); RBC 3.91 10x6/uL (4.00-5.40); RDW 17.2 % (11.5-14.5); WBC 14.4 10x3/uL (4.8-10.8)
--- NOTE | 2020-06-06 08:10 | NUR ---
PT RESTING IN BED, PERSONAL ITEMS AND CALL LIGHT WITHIN REACH. PT IS SOFT SPOKEN AND HARD TO UNDERSTAND, POSSIBLY DUE TO NG TUBE PLACEMENT IN LEFT NARE.
--- NOTE | 2020-06-06 11:03 | NUR ---
Nutrition Follow-up: Chart reviewed. Noted pt remains in covid precautions at this time. Patient is tolerating TF via DHT at 35mL/hr currently, goal rate is 50mL/hr. Family wishes for long-term TF per MD notes. Diet: Regular Soft assisted feeding, calorie count x 3 days (start 06/05/20 lunch) = 0% (refused) x 2 meals recorded yesterday = 0 kcal and 0gms PRO TF order: Osmolite 1.0 increase by 10mL/hr q 6hrs to goal rate 50mL/hr + H2O flush 25mL/hr. Wt: 120# (06/05/20); Admit wt: 135# (05/30/20) Labs noted: K 3.1(L), Mag 1.4(L), Alb 1.7(L) Meds noted: D51/2NS@50 Last BM: 06/03/20 Skin: unstagable PU to left and right buttocks Recommend continue advancing TF by 10mL/hr Q 6hrs as tolerated until reaching goal rate of 50mL/hr. RD following.
[2020-06-06 19:50] VITALS: BP 102/52
--- NOTE | 2020-06-06 20:17 | NUR ---
SPOKE TWICE WITH PT'S SON URBAN, REQUESTING UPDATES ON HIS MOTHER. URBAN/SON CAN BE REACHED @ [phone].
[2020-06-07 00:30] VITALS: BP 114/56
[2020-06-07 05:57] LABS: BASOPHILS 0.2 % (0-2); EOSINOPHILS 0.2 % (0-7); HEMATOCRIT 31.6 % (36.0-48.0); HEMOGLOBIN 9.9 g/dL (12-16); IMMATURE GRANULOCYTES 7.8 % (0-5); MCH 25.4 pg (26.0-34.0); MCHC 31.3 g/dL (31.0-37.0); MONOCYTES 4.8 % (2-11); PLATELET COUNT 196 10x3/uL (130-400); RDW 17.1 % (11.5-14.5); WBC 16.4 10x3/uL (4.8-10.8)
--- NOTE | 2020-06-07 08:10 | NUR ---
PT RESTING EYES CLOSED, NO SIGNS OF DISTRESS OF DISCOMFORT.
[2020-06-07 09:07] VITALS: BP 144/69
[2020-06-07 13:44] VITALS: BP 146/51
[2020-06-07 16:50] VITALS: BP 144/69
[2020-06-07 21:00] VITALS: BP 132/53
--- NOTE | 2020-06-08 02:30 | NUR ---
PT CLEANED AND REPOSITIONED. NEW MEPILEX PLACED ON PT'S BUTTOCK. MEPILEX IS DATED. PT HAD SMALL BM.PT TOLERATED REPOSITIONING WELL. CALL LIGHT IS WITHIN REACH.
[2020-06-08 07:09] LABS: BASOPHILS 0.2 % (0-2); EOSINOPHILS 0.4 % (0-7); HEMATOCRIT 31.1 % (36.0-48.0); HEMOGLOBIN 9.9 g/dL (12-16); IMMATURE GRANULOCYTES 5.4 % (0-5); MCH 25.6 pg (26.0-34.0); MCHC 31.8 g/dL (31.0-37.0); MCV 80.4 fL (80.0-100.0); MEAN PLATELET VOLUME 10.1 fL (7.4-10.4); MONOCYTES 6.8 % (2-11); NEUTROPHILS 79.2 % (40-80); RBC 3.87 10x6/uL (4.00-5.40); RDW 17.3 % (11.5-14.5); WBC 16.1 10x3/uL (4.8-10.8)
[2020-06-08 07:29] LABS: CALC OSMOLALITY 272 mosm/kg (275-300); CALCIUM 8.9 mg/dL (8.5-10.1); CARBON DIOXIDE 23.4 mmol/L (21.0-32.0); CHLORIDE - SERUM 106 mmol/L (98-107); CREATININE - SERUM 0.7 mg/dL (0.6-1.3); GLUCOSE 97 mg/dL (74-106); POTASSIUM - SERUM 3.7 mmol/L (3.5-5.1); SODIUM 135 mmol/L (136-145); UREA NITROGEN 20 mg/dL (7-18); eGFR NON AFRICAN AMERICAN 85 mL/min (90-120)
--- NOTE | 2020-06-08 07:30 | NUR ---
PT SLEEPING, BREAKFAST ON THE WAY. CALL LIGHT IS WITHIN REACH.
[2020-06-08 07:50] LABS: PLATELET COUNT 249 10x3/uL (130-400)
--- NOTE | 2020-06-08 09:30 | NUR ---
PT BREAKFAST AT THE BEDSIDE, PT ABLE TO SWALLOW MEDS IN APPLESAUCE. PT ABLE TO SIP ICE WATER AND TOLERATES WELL
[2020-06-08 09:31] VITALS: BP 126/77
[2020-06-08 13:30] VITALS: BP 126/77
[2020-06-08 16:22] VITALS: BP 152/73
[2020-06-08 20:15] VITALS: BP 146/88
[2020-06-09 04:12] VITALS: BP 155/92
[2020-06-09 08:22] VITALS: BP 143/79
--- NOTE | 2020-06-09 08:42 | NUR ---
GAVE PT SCHEDULED MED CRUSHED IN APPLESAUCE, NO OTHER NEEDS VOICED, PT VITALS STABLE, O2 IN USE, IV INFUSING WITHOUT DIFFICULTY, SITE CLEAR, DOBB HOFFIN PLACE WITH FEEDING GOING, SR UP X2 , CALL LIGHT IN REACH, WILL MONITOR
[2020-06-09 11:23] VITALS: BP 151/82
--- NOTE | 2020-06-09 11:24 | NUR ---
PT TOOK MED IN APPLESAUCE, PT REPOSITINED TO RIGHT SIDE PER TWO ASSIST, PT TOLERATED FINE, WILL MONITOR
--- NOTE | 2020-06-09 12:52 | NUR ---
Nutrition Follow-up: Pt in droplet isolation; covid-19 +. Nursing reports pt receiving Osmolite @ 30 mL/hr this AM; noted Dr. Sanchez ordered goal of 40 mL/hr. Previous goal rate was 50 mL/hr. Per MD note, pt not eating. Diet: Osmolite 2.0 - goal rate 40 mL/hr Regular, Soft, assist with feeding Wt: 120# (06/05) Last BM: 06/08 per chart Labs noted: Na 135 Meds noted: KCl, Pepcid, vitamin B12, Oscal, electrolyte protocol -Rec Osmolite 1.0 @ goal rate of 50 mL/hr + H2O flushes 25 mL q hr. -Monitor wt; noted daily wts ordered. -RD following.
--- NOTE | 2020-06-09 14:54 | NUR ---
REPOSITIONED PT TO LEFT SIDE, PT TOERATED WELL
[2020-06-09 17:37] VITALS: BP 157/88
[2020-06-09 20:00] VITALS: BP 177/82
--- NOTE | 2020-06-09 21:05 | NUR ---
HS MEDS GIVEN CRUSHED IN APPLE SUACE. REPOSITIONED IN BED FOR COMFORT.
[2020-06-10] VITALS (7 sets, daily range): BP systolic 106–176; BP diastolic 55–98
--- NOTE | 2020-06-10 08:30 | NUR ---
CRUSHED MEDS IN APPLESAUCE AND ATTEPTED TO GIVE MEDS WITH SIPS OF JUICE. NOTICED SHE WAS HAVING TROUBLE SWOLLOWING AND POSSIBLY ASPIRATING. WILL HOLD FUTURE ORAL MEDS.
--- NOTE | 2020-06-10 09:01 | MORECARE ---
CASE MANAGEMENT DISCHARGE SUMMARY PATIENT: FABBY IGLESIAS UNIT: [id number] ADM DATE: 05/30/20 AGE: 84 : 36 SEX: F ROOM/BED: D.4246 AUTHOR: CHAUNCEY LONDON PHYSICIAN: REFERRING PHYSICIAN: JONATHAN OJEDA MD DATE OF SERVICE: 06/10/20 Discharge Plan Patient Name: FABBY IGLESIAS [facility] [facility] 1935 Planned Disposition: Shelter Facility Anticipated Discharge Date: Discharge Date: Expected LOS: Initial Reviewer: [email or web address] Initial Review Date: 05/30/2020 Generated: 06/10/20 10:01 am DCP- Discharge Planning Updated by [email or web address]: Rodrick Truong on 06/02/20 5:[address] PT IS A LONG-TERM RESIDENT AT [facility]. FAXED CLINICAL UPDATE TO [facility]. ONE MEDICALLY STABLE PT WILL RETURN TO THE FACILITY IN A GUSTAVO BED. RODRICK TROUNG External Providers External Provider: [facility] Next Contact Date: Service Request Date: Service Type: Resolution: Reviewer: Comments: Last DP export: 06/02/20 5:37 p Patient Name: FABBY IGLESIAS Page [id number] at 0901 All edits/amendments must be made on the electronic document DICTATION DATE: 06/10/[address] JUDGE: HAMILTON 06/10/20900 RPT#: [id number] DC DATE: STATUS: ADM IN [facility] [address] [place] [address] END OF REPORT
--- NOTE | 2020-06-10 09:29 | NUR ---
DOBHOFF IN PLACE WITH OSMOLTE INFUSING. SUCTIOND WHITE FROTHY SPUTUM FROM MOUTH. WILL CONT. PLAN OF CARE.
[2020-06-11 06:58] LABS: BASOPHILS 0.1 % (0-2); EOSINOPHILS 0.4 % (0-7); HEMATOCRIT 30.5 % (36.0-48.0); HEMOGLOBIN 9.7 g/dL (12-16); IMMATURE GRANULOCYTES 1.8 % (0-5); MCH 25.5 pg (26.0-34.0); MCHC 31.8 g/dL (31.0-37.0); MCV 80.1 fL (80.0-100.0); MEAN PLATELET VOLUME 10.1 fL (7.4-10.4); MONOCYTES 11.3 % (2-11); NEUTROPHILS 77.4 % (40-80); RBC 3.81 10x6/uL (4.00-5.40); RDW 17.8 % (11.5-14.5); WBC 14.2 10x3/uL (4.8-10.8)
[2020-06-11 07:15] LABS: PLATELET COUNT 369 10x3/uL (130-400)
[2020-06-11 08:30] VITALS: BP 101/50
[2020-06-11 08:37] LABS: ANION GAP 11.1 mmol/L (8-16); CALCIUM 9.7 mg/dL (8.5-10.1); CREATININE - SERUM 0.8 mg/dL (0.6-1.3); POTASSIUM - SERUM 4.1 mmol/L (3.5-5.1)
[2020-06-11 13:27] VITALS: BP 101/50
--- NOTE | 2020-06-11 15:09 | NUR ---
IV RESTARTED BY BRENT MORRIS TO RIGHT AC. LINE IS PATENT.
[2020-06-11 17:53] VITALS: BP 101/50
--- NOTE | 2020-06-11 21:10 | NUR ---
PATIENT IS RESTING IN BED. SHE IS PLEASANTLY CONFUSED. SHE IS SINUS ON TELE, AND ON 11 LITERS NASAL CANNULA HI PAULINA. SHE IS ON CONTINUOUS VITALS. WE WILL CONTINUE TO MONITOR HER RESPIRATORY STATUS.
[2020-06-11 23:14] VITALS: BP 112/52
--- NOTE | 2020-06-12 03:18 | NUR ---
PATIENT IS SLEEPING IN BED. WE HAVE A MONITOR ON HER. SHE IS PLEASANTLY CONFUSED. HE HAS BEEN NON VERBAL. SHE HAS CONTINUOUS PULSE IN PLACE. WE WILL CONTINUE TO MONITOR HER RESPIRATORY STATUS.
[2020-06-12 04:00] VITALS: BP 138/69
[2020-06-12 07:45] VITALS: BP 123/55
[2020-06-12 11:21] VITALS: BP 126/62
--- NOTE | 2020-06-12 12:22 | NUR ---
Nutrition Follow-up: Per MD note, noted plans to consult for hospice; family does not want rodent exterminator NG or feeding tube as her living will designates. Diet: Osmolite 1.0 - goal rate 40 mL/hr Regular, Soft Wt: 133# (06/10) Last BM: 06/09 per chart Labs reviewed Meds reviewed -RD following.
--- NOTE | 2020-06-12 14:03 | MORECARE ---
CASE MANAGEMENT DISCHARGE SUMMARY PATIENT: FABBY HARGROVE UNIT: [id number] ADM DATE: 05/30/20 AGE: 84 : 36 SEX: F ROOM/BED: D.1974 AUTHOR: CHAUNCEY LONDON PHYSICIAN: REFERRING PHYSICIAN: JONATHAN OJEDA MD DATE OF SERVICE: 06/12/20 Discharge Plan Patient Name: FABBY AHRGROVE Facility: [facility]:[place] : 1935 Planned Disposition: Custodial Facility Anticipated Discharge Date: Discharge Date: Expected LOS: Initial Reviewer: [email or web address] Initial Review Date: 05/30/2020 Generated: 06/12/20 3:02 pm Comments DCP- Discharge Planning Updated by [email or web address]: Casi Hernandez on 06/12/20 1:[address] CM contacted patient's son, Mitch Hargrove ([phone]), Bety Calvert, daughter ([phone]) regarding hospice. CM answered questions, provided the two hospice agencies in , [place] and [facility]. Made the family aware that an evaluation will be completed today and a hospice member service representative will be in contact with them. Both children would like to have a three-way conservation with the member service representative. CM contacted Leia with [facility], #[phone], provided information via phone and fax. The patient currently lives at [facility]. Await hospice decision. DCP- Discharge Planning Updated by [email or web address]: Rodrick Truong on 06/02/20 5:[address] PT IS A LONG-TERM RESIDENT AT [facility]. FAXED CLINICAL UPDATE TO [facility]. ONE MEDICALLY STABLE PT WILL RETURN TO THE FACILITY IN A GUSTAVO BED. RODRICK TRUONG Last DP export: 06/10/20 8:01 a Patient Name: FABBY HARGROVE Page [phone] at 1403 All edits/amendments must be made on the electronic document DICTATION DATE: 06/12/20 1402 TREAD TUBER MACHINE OPERATOR: HAMILTON 06/12/20 1402 RPT#: [id number] DC DATE: STATUS: ADM IN [facility] [address] [place] [address] END OF REPORT
--- NOTE | 2020-06-12 15:01 | MORECARE ---
CASE MANAGEMENT DISCHARGE SUMMARY PATIENT: FABBY HARGROVE UNIT: [id number] ADM DATE: 05/30/20 AGE: 84 : 36 SEX: F ROOM/BED: D.7112 AUTHOR: CHAUNCEY LONDON PHYSICIAN: REFERRING PHYSICIAN: JONATHAN OJEDA MD DATE OF SERVICE: 06/12/20 Discharge Plan Patient Name: FABBY HARGROVE Facility: [facility]:[place] : 1935 Planned Disposition: Fpc Facility Anticipated Discharge Date: Discharge Date: Expected LOS: Initial Reviewer: [email or web address] Initial Review Date: 05/30/2020 Generated: 06/12/20 4:01 pm Comments DCP- Discharge Planning Updated by [email or web address]: Casi Hernandez on 06/12/20 1:[address] CM contacted patient's son, Mitch Hargrove ([phone]), Bety Calvert, daughter ([phone]) regarding hospice. CM answered questions, provided the two hospice agencies in , [place] and [facility]. Made the family aware that an evaluation will be completed today and a hospice used equipment sales representative will be in contact with them. Both children would like to have a three-way conservation with the used equipment sales representative. CM contacted Leia with [facility], #[phone], provided information via phone and fax. The patient currently lives at [facility]. Await hospice decision. DCP- Discharge Planning Updated by [email or web address]: Rodrick Truong on 06/02/20 5:[address] PT IS A LONG-TERM RESIDENT AT [facility]. FAXED CLINICAL UPDATE TO [facility]. ONE MEDICALLY STABLE PT WILL RETURN TO THE FACILITY IN A GUSTAVO BED. RODRICK TRUONG Last DP export: 06/12/20 1:03 p Patient Name: FABBY HARGROVE Page [phone] at 1501 All edits/amendments must be made on the electronic document DICTATION DATE: 06/12/20 1501 FRANCHISE CONSULTANT: HAMILTON 06/12/20 1501 RPT#: [id number] DC DATE: STATUS: ADM IN [facility] [address] [place] [address] END OF REPORT
[2020-06-12 15:29] VITALS: BP 126/60
--- NOTE | 2020-06-12 16:29 | MORECARE ---
CASE MANAGEMENT DISCHARGE SUMMARY PATIENT: FABBY HARGROVE UNIT: [id number] ADM DATE: 05/30/20 AGE: 84 : 36 SEX: F ROOM/BED: D.9406 AUTHOR: CHAUNCEY LONDON PHYSICIAN: REFERRING PHYSICIAN: JONATHAN OJEDA MD DATE OF SERVICE: 06/12/20 Discharge Plan Patient Name: FABBY HARGROVE Facility: [facility]:[place] : 1935 Planned Disposition: Senior Living Facility Anticipated Discharge Date: Discharge Date: Expected LOS: Initial Reviewer: [email or web address] Initial Review Date: 05/30/2020 Generated: 06/12/20 5:28 pm Comments DCP- Discharge Planning Updated by [email or web address]: Casi aMry on 06/12/20 3:[address] Patient will be admitted to [facility] 06/13. If she no longer meets [facility] hospice, patient will go into long-term care at [facility]. CM contacted patient's son, Mitch Hargrove ([phone]), Bety Calvert, daughter ([phone]) regarding hospice. CM answered questions, provided the two hospice agencies in , [place] and [facility]. Made the family aware that an evaluation will be completed today and a hospice inside sales account representative will be in contact with them. Both children would like to have a three-way conservation with the inside sales account representative. CM contacted Leia with [facility], #[phone], provided information via phone and fax. The patient currently lives at [facility]. Await hospice decision. DCP- Discharge Planning Updated by [id number]: Rodrick Truong on 06/02/20 5:[address] PT IS A LONG-TERM RESIDENT AT [facility]. FAXED CLINICAL UPDATE TO [facility]. ONE MEDICALLY STABLE PT WILL RETURN TO THE FACILITY IN A GUSTAVO BED. RODRICK TRUONG Last DP export: 06/12/20 2:01 p Patient Name: FABBY HARGROEV Page [id number] at 1625 All edits/amendments must be made on the electronic document DICTATION DATE: 06/12/201627 CHROME CLEANER: HAMILTON 06/12/201627 RPT#: [id number] DC DATE: STATUS: ADM IN [facility] [address] [facility] [place] [address] END OF REPORT
--- NOTE | 2020-06-12 17:57 | MORECARE ---
CASE MANAGEMENT DISCHARGE SUMMARY PATIENT: FABBY HARGROVE UNIT: [id number] ADM DATE: 05/30/20 AGE: 84 : 36 SEX: F ROOM/BED: D.8302 AUTHOR: LITA,DOC PHYSICIAN: REFERRING PHYSICIAN: JONATHAN OJEDA MD DATE OF SERVICE: 06/12/20 Discharge Plan Patient Name: FABBY HARGROVE Facility: [facility]:[place] : 1935 Planned Disposition: Senior Care Facility Anticipated Discharge Date: Discharge Date: Expected LOS: Initial Reviewer: [email or web address] Initial Review Date: 05/30/2020 Generated: 06/12/20 6:57 pm Comments DCP- Discharge Planning Updated by [email or web address]: Casi Hernandez on 06/12/20 4:[address] CM spoke with Marian Clark, regarding compassionate visits. Patient's (son) Mitch Hargrove and Hu Hargrove (son) have been added to the list for visits, indefinitely. CM contacted [facility] and both names have been added to the visitation list. Patient will be admitted to [facility] 06/13. If she no longer meets [facility] hospice, patient will go into long-term care at [facility]. CM contacted patient's son, Mitch Hargrove ([phone]), Bety Calvert, daughter ([phone]) regarding hospice. CM answered questions, provided the two hospice agencies in , [place] and [facility]. Made the family aware that an evaluation will be completed today and a hospice hospital insurance representative will be in contact with them. Both children would like to have a three-way conservation with the hospital insurance representative. CM contacted Leia with [facility], #[phone], provided information via phone and fax. The patient currently lives at [facility]. Await hospice decision. DCP- Discharge Planning Updated by [id number]: Rodrick Truong on 06/02/20 5:[address] PT IS A LONG-TERM RESIDENT AT [facility]. FAXED CLINICAL UPDATE TO [facility]. ONE MEDICALLY STABLE PT WILL RETURN TO THE FACILITY IN A GUSTAVO BED. RODRICK TRUONG Last DP export: 06/12/20 3:29 p Patient Name: FABBY HARGROVE Page [id number] at 1757 All edits/amendments must be made on the electronic document DICTATION DATE: 06/12/201756 MOTOR ADJUSTER: HAMILTON 06/12/201756 RPT#: [id number] DC DATE: STATUS: ADM IN [facility] [address] [place] [address] END OF REPORT
--- NOTE | 2020-06-12 20:00 | NUR ---
REPORT RECEIVED, WILL CONT POC. PT A&O, LYING BED RESTING. NO S/S OF DISTRESS OBSERVED. RR EVEN AND UNLABORED ON 7L HIGH FLOW VIA NC. SPOKE WITH SON WHO SAID PT WILL BE PLACED ON HOSPICE TOMORROW. THEY HAVE ALREADY MOVED FORWARD WITH THAT PROCESS OF TODAY. PT HAS A MEPILEX ON BUTTON FOR SKIN BREAKDOWN. PT DENIES NEEDS AT THIS TIME. CALL LIGHT IN REACH, BED LOCKED AND LOWERED. WILL CONT TO MONITOR. ASSESSMENT COMPLETED AT THIS TIME.
[2020-06-12 21:35] VITALS: BP 130/67
[2020-06-13] VITALS: BP 108/64
[2020-06-13 04:00] VITALS: BP 116/56
[2020-06-13 07:53] VITALS: BP 105/51
--- NOTE | 2020-06-13 11:03 | NUR ---
DR OJEDA CALLED FOR DISCHARGE ORDERS FOR READMIT TO HOSPICE.
--- NOTE | 2020-06-16 07:56 | MORECARE ---
CASE MANAGEMENT DISCHARGE SUMMARY PATIENT: FABBY HARGROVE UNIT: [id number] ADM DATE: 05/30/20 AGE: 84 : 36 SEX: F ROOM/BED: D.9054 AUTHOR: CHAUNCEY LONDON PHYSICIAN: REFERRING PHYSICIAN: JONATHAN OJEDA MD DATE OF SERVICE: 06/16/20 Discharge Plan Patient Name: FABBY HARGROVE Facility: [facility]:[place] : 1935 Planned Disposition: [facility]ci Facility Anticipated Discharge Date: Discharge Date: 06/13/2020 Expected LOS: Initial Reviewer: [id number] Initial Review Date: 05/30/2020 Generated: 06/16/20 8:56 am Comments DCP- Discharge Planning Updated by [email or web address]: Casi Hernandez on 06/12/20 4:[address] CM spoke with Marian Clark, regarding compassionate visits. Patient's (son) Mitch Hargrove and Hu Hargrove (son) have been added to the list for visits, indefinitely. CM contacted [facility] and both names have been added to the visitation list. Patient will be admitted to [facility] 06/13. If she no longer meets [facility] hospice, patient will go into long-term care at [facility]. CM contacted patient's son, Mitch Hargrove ([phone]), Bety Calvert, daughter ([phone]) regarding hospice. CM answered questions, provided the two hospice agencies in , [place] and [facility]. Made the family aware that an evaluation will be completed today and a hospice education courses sales representative will be in contact with them. Both children would like to have a three-way conservation with the education courses sales representative. CM contacted Leia with [facility], #[phone], provided information via phone and fax. The patient currently lives at [facility]. Await hospice decision. DCP- Discharge Planning Updated by [id number]: Rodrick Truong on 06/02/20 5:[address] PT IS A LONG-TERM RESIDENT AT [facility]. FAXED CLINICAL UPDATE TO [facility]. ONE MEDICALLY STABLE PT WILL RETURN TO THE FACILITY IN A [facility] BED. RODRICK TRUONG Last DP export: 06/12/20 4:57 p Patient Name: FABBY HARGROVE Page [id number] at 0756 All edits/amendments must be made on the electronic document DICTATION DATE: 06/16/20 0756 MANUFACTURING ASSISTANT: HAMILTON 06/16/20 0756 RPT#: [id number] DC DATE:06/13/20 STATUS: DIS IN [facility] [address] [place] [address] END OF REPORT
== END 2020-06-13 14:41 | disposition hospice, inpatient (51) | DRG 871 ==
LOC: D.ER 13:30 → D.M2 15:44
PROVIDERS: Family Medicine; ADMIT Family Medicine; ATTEND Family Medicine
DX: A41.9 Sepsis, unspecified organism (principal); U07.1 COVID-19; J15.212 Pneumonia due to Methicillin resistant Staphylococcus aureus; G93.41 Metabolic encephalopathy; R40.2344 Coma scale, best motor response, flexion withdrawal, 24 hours or more after hospital admission; N39.0 Urinary tract infection, site not specified; N17.9 Acute kidney failure, unspecified; F03.90 Unspecified dementia, unspecified severity, without behavioral disturbance, psychotic disturbance, mood disturbance, and anxiety; E03.9 Hypothyroidism, unspecified; I10 Essential (primary) hypertension; D64.9 Anemia, unspecified; R40.2134 Coma scale, eyes open, to sound, 24 hours or more after hospital admission; R40.2234 Coma scale, best verbal response, inappropriate words, 24 hours or more after hospital admission

== ENCOUNTER 2020-06-13 14:41 | Inpatient (IN) | payer OTHER ==
[~2020-06-13] VITALS: Ht 157.5 cm; Wt 60.3 kg
[~2020-06-13 14:41] MED LIST changes: +DICLOFENAC SODI50 MG PO; +GUAIFENESI100 MG/5 M PO; +REMERON15 MG PO
[2020-06-13 17:50] VITALS: BP 99/57; BMI 24.4
[2020-06-13 20:52] VITALS: BP 99/53
--- NOTE | 2020-06-14 07:28 | NUR ---
DID WALKING ROUNDS, PT RESTING IN BED WITH EYES CLOSED, O2 IN USE PER 5L HIGH FLOW, IV INFUSING WITHOUT DIFFICULTY, DILAUDID INSPECTOR AIDE IN USE FOR COMFORT, AVELAR PATENT TO BSD, NO NEEDS OR PAIN NOTED, BED LOW AND LOCKED, SR UP X2, CALL LIGHT IN REACH, WILL MONITOR
--- NOTE | 2020-06-14 08:22 | NUR ---
SON AT BEDSIDE, NO NEEDS VOICED, WILL MONITOR
[2020-06-14 08:36] VITALS: BP 81/57
--- NOTE | 2020-06-14 10:05 | NUR ---
PT REPOSITIONED FOR COMFORT, NO OTHER NEEDS NOTED, LOWER EXTREMITIES ELEVATED, AVELAR PATENT TO BSD, BED LOW AND LOCKED, CALL LIGHT IN REACH, WILL MONITOR
[2020-06-14 12:48] VITALS: Ht 157.5 cm; Wt 60.3 kg
--- NOTE | 2020-06-14 13:06 | NUR ---
REPOSTIONED PT TO LEFT SIDE, PT TOLERATED FAIR, AVELAR PATENT, NO NEEDS OR PAIN NOTED, DILAUDID DIRECTOR DISTRIBUTION IN USE FOR COMFORT, WILL MONITOR
[2020-06-14 20:00] VITALS: BP 97/50
--- NOTE | 2020-06-15 04:40 | NUR ---
PT RESTING COMFORTABLY, NO S/S OF DISCOMFORT OR DISTRESS. D/C TAYO TO RIGHT FA, WAS LEAKING. CATHETER TIP TINTACT. GRANITE POLISHER NOW INFUSING TO IV IN LEFT UPPER ARM. WILL CPOC.
[2020-06-15 07:29] VITALS: BP 128/59
[2020-06-15 22:04] VITALS: BP 91/69
[2020-06-16 07:46] VITALS: BP 138/65
--- NOTE | 2020-06-16 10:53 | NUR ---
PT AWAKE AND CONFUSED. V/S STABLE, PT DOES NOT APPEAR TO BE CLOSE IMPENDING . SHE THANKED ME AND IFOMRED ME SHE LOVED ME. THANKED PT. CL IN REACH, SRX2. BABY MONITOR ON AND WORKING WNL.
--- NOTE | 2020-06-16 19:15 | NUR ---
I have reviewed this patient and I concur with the Shift Assessment completed by the Licensed Practical Nurse today this shift.
[2020-06-16 21:40] VITALS: BP 109/64
--- NOTE | 2020-06-17 00:12 | NUR ---
REPOSITIONED IN BED FOR COMFORT. BED LOW, CL IN REACH.
--- NOTE | 2020-06-17 05:32 | NUR ---
IN BED RESTING, RESPERATIONS SHALLOW, 02 SATS 96%. BP 85/45.
--- NOTE | 2020-06-17 07:40 | NUR ---
PT LYING IN BED. RR SHALLOW. EYES CLOSED. CL IN REACH. WILL CONTINUE TO OBSERVE. BED LOW.
[2020-06-17 09:42] VITALS: BP 94/64
--- NOTE | 2020-06-17 13:01 | NUR ---
Nutrition Follow-up: Pt in droplet isolation; covid-19+. GIP hospice. No diet order Wt: 133# (06/14) No new labs Meds reviewed -RD following and available to assist as needed.
--- NOTE | 2020-06-17 16:02 | MORECARE ---
CASE MANAGEMENT DISCHARGE SUMMARY PATIENT: FABBY IGLESIAS UNIT: [id number] ADM DATE: 06/13/20 AGE: 84 : 36 SEX: F ROOM/BED: D.2519 AUTHOR: CHAUNCEY LONDON PHYSICIAN: REFERRING PHYSICIAN: SAHRA GUTIERREZ MD DATE OF SERVICE: 06/17/20 Discharge Plan Patient Name: FABBY IGLESIAS Facility: [facility]:[place] : 1935 Planned Disposition: Anticipated Discharge Date: Discharge Date: Expected LOS: Initial Reviewer: [email or web address] Initial Review Date: 06/13/2020 Generated: 06/17/20 5:02 pm Patient Name: FABBY IGLESIAS Page [id number] at 1602 All edits/amendments must be made on the electronic document DICTATION DATE: 06/17/20 160 NURSING EDUCATOR: HAMILTON 06/17/20 160 RPT#: [id number] DC DATE: STATUS: ADM IN [facility] [address] [place] [address] END OF REPORT
[2020-06-17 20:00] VITALS: BP 105/61
[2020-06-18 07:38] VITALS: BP 112/61
[2020-06-18 18:36] VITALS: BP 114/67
[2020-06-19] VITALS: BP 116/57
--- NOTE | 2020-06-19 04:22 | NUR ---
RESTING WITH EYES CLOSED, RESPERATIONS SHALLOW, DILAUDID PC IN USE FOR PAIN CONTROL.
--- NOTE | 2020-06-19 04:30 | NUR ---
I have reviewed this patient and I concur with the Shift Assessment completed by the Licensed Practical Nurse today this shift.
[2020-06-19 07:13] VITALS: BP 124/58
--- NOTE | 2020-06-19 07:30 | NUR ---
PT RECEIVED ASLEEP AND SOMNOLENT. REDUCING SALON ATTENDANT INFUSING. PULSE OX 95% ON 7LNCHF. SHE IS NOT NEAR ALERT PRIOR SHIFT. VITALS STABLE FROM PREVIOUS.
[2020-06-19 20:00] VITALS: BP 128/67
--- NOTE | 2020-06-19 20:22 | NUR ---
REPORT RECEIVED, WILL CONT POC. PT AWAKE BUT NOT ORIENTED. RESPONDS TO VOCAL STIMULI. PLEASENTLY CONFUSED. SON, CHRIS, AT BEDSIDE. NO S/S OF DISTRESS. RR EVEN AND UNLABORED. ASSESSMENT COMPLETED AT THIS TIME. WILL CONT TO MONITOR.
--- NOTE | 2020-06-20 04:45 | NUR ---
PT REPORTED GENERALIZED PAIN. BOLUSED PTS DILAUDID PER MD ORDER.
[2020-06-20 07:28] VITALS: BP 116/65
--- NOTE | 2020-06-20 11:21 | NUR ---
PT WITHOUT CHANGE. PULSE OX 100% ON 7LITERS. BP 99/56, HR 92, RESP 10.
[2020-06-20 11:23] VITALS: BP 99/56
[2020-06-20 13:12] VITALS: BP 102/57
[2020-06-20 16:29] VITALS: BP 120/62
[2020-06-20 20:23] VITALS: BP 95/61
--- NOTE | 2020-06-20 20:41 | NUR ---
ASSESSMENT COMPLETED AT 1955 HRS. VSS. PT AROUSES TO NOXIUS STIMULI. O2 7LHF O2. LUNGS DIMINISHED IN BASES BILAT. IV TO UPPER L ARM WITH NS AT 15CC/HR AND DILAUDID SEWAGE TREATMENT PLANT OPERATOR AT 0.2MG/HR CONTINUOUS. BRUISES NOTED TO BILAT ARMS. MEPILEX TO COCCYX CLEAN, DRY AND INTACT. PT REPOSITIONED ONTO L SIE WITH ASSIST FROM JADE PEREZ. CALL LIGHT WITHIN REACH.
--- NOTE | 2020-06-20 21:47 | NUR ---
O2 SAT 90% ON 8L HF O2. ATTEMPTED TO UCTION PT PT PT CLAMPED DOWN HER TEETH. PT ALLOWED ORAL CARE TO BE DONE.
--- NOTE | 2020-06-20 22:43 | NUR ---
RECEIVED REPORT, WILL ASSUME CARE OF PT, BED IS LOW, SRX2, CALL LIGHT IN REACH, WILL CONTINUE PLAN OF CARE
[2020-06-21 07:00] VITALS: BP 88/61
--- NOTE | 2020-06-21 08:38 | NUR ---
AM ROUNDING DONE WITH PATIENT ON HOSPICE IN COVID + ISOLATION. LEFT UPPER ARM PIV OF NS INFUSING ALONG WITH DIRECTOR HYDROGEN STORAGE ENGINEERING DILAUDID FOR COMFORT CARE/PAIN CONTROL. ON 7L HIGH FLOW. AVELAR CATH PATENT WITH DAGO URINE. DNR CODE STATUS. WILL MONITOR.
--- NOTE | 2020-06-21 09:19 | NUR ---
WATCHING VIDEO MONITOR PATIENT IS STILL BREATHING, APPEARS PAIN FREE.
[2020-06-21 11:07] VITALS: BP 88/61
--- NOTE | 2020-06-21 11:53 | NUR ---
URBAN, PATIENT SON HERE TO SEE HER. COMPLETE PPE ON AND IN USE.
--- NOTE | 2020-06-21 13:37 | NUR ---
PATIENT IS HAVING SHALLOW BREATHS AT THIS TIME WITH PAUSES UP TO 10 SEC.
[2020-06-21 15:59] VITALS: BP 88/61
[2020-06-21 18:29] VITALS: BP 114/61
--- NOTE | 2020-06-21 19:30 | NUR ---
RECEIVED REPORT, WILL ASSUME CARE OF PT, PT IS COVID+, ON HOSPICES, BREATHING IS SHALLOW, WILL CONTINUE TO WATCH ON MONITOR
[2020-06-21 21:29] VITALS: BP 110/60
--- NOTE | 2020-06-22 10:28 | NUR ---
PT UNRESPONSIVE AT THIS TIME. BREATHS REGUALR AND UNEVEN. PTS SON CAME TO VISIT FOLLOWING ALL APPRORIATE AND INDICATED ISOLATION PROCEDURES. WILL CNT. TO MONITOR. CL IN REACH, SRX2.
--- NOTE | 2020-06-22 16:45 | NUR ---
I have reviewed this patient and I concur with the Shift Assessment completed by the Licensed Practical Nurse today this shift.
--- NOTE | 2020-06-22 17:37 | NUR ---
HOSPICE NURSE STOPPED BY TO SEE PT, PREFORMED ORAL CARE. SHORLTY AFTER I WENT TO CHECK ON PT AND DELIVER TRAYS. ENTERED PTS ROOM AT 1715, PT APPEARED TO BE ACTIVELY DYING. OXIMETER WAS NOT PICKING UP PULSE OR O2, B/P WAS 60/40 AND DECREASING. REPSIRATIONS 10. CNT. TO STAY AT PTSSIDE AND AWAIT IMINITE . SHORTLY AFTER PT RESPIRATIONS SPACED OUT FURTHER AND PT PEACEFULLY PASSED. LISTENED TO ALL FOUR LUNG SOUNDS, NO SOUNDS PRESENT. NO PULSE PRESENT. INFORMED HOSPICE NURSE AND AWAITING HER ARRIVAL.
--- NOTE | 2020-06-22 18:06 | NUR ---
SPOKE WITH ARMANDO REIS TAMIMENT AT 1800, PT DISQUALIFIED D/T AGE AND COVID19 DIAGNSIS
--- NOTE | 2020-06-22 20:47 | NUR ---
PTS BODY PICKED UP BY HOME, RING THAT FAMILY DID NOT WANT WAS TAKEN WITH THE BODY.
--- NOTE | 2020-06-23 05:32 | NUR ---
15ML OF DILAUDID SENIOR OUTSIDE SALES REPRESENTATIVE WASTED WITH ROMÁN MARTINEZ RN WITNESS
--- NOTE | 2020-06-24 12:31 | MORECARE ---
CASE MANAGEMENT DISCHARGE SUMMARY PATIENT: FABBY IGLESIAS UNIT: [id number] ADM DATE: 06/13/20 AGE: 84 : 36 SEX: F ROOM/BED: D.8725 AUTHOR: CHAUNCEY LONDON PHYSICIAN: REFERRING PHYSICIAN: SAHRA GUTIERREZ MD DATE OF SERVICE: 06/24/20 Discharge Plan Patient Name: FABBY IGLESIAS Facility: [facility]:[place] : 1935 Planned Disposition: Anticipated Discharge Date: 06/22/20 Discharge Date: 06/22/2020 Expected LOS: 9 Initial Reviewer: [email or web address] Initial Review Date: 06/13/2020 Generated: 06/24/20 1:31 pm Last DP export: 06/17/20 3:02 pm Patient Name: FABBY IGLESIAS Page [id number] at 1231 All edits/amendments must be made on the electronic document DICTATION DATE: 06/24/20 1231 AUTOMOBILE RENTAL CLERK: HAMILTON 06/24/20 1231 RPT#: [id number] DC DATE:06/22/20 STATUS: DIS IN [facility] [address] [place] [address] END OF REPORT
== END 2020-06-22 20:48 | disposition home or self-care (01) | DRG 951 ==
LOC: D.M2 14:41
PROVIDERS: ADMIT Legal Medicine; ATTEND Legal Medicine
DX: Z51.5 Encounter for palliative care (principal)